=== PATIENT | female | born 1945 | race Caucasian/White ===

== ENCOUNTER → 2016-02-20 | Outpatient (REF) | payer MEDICARE ==
[~2016-02-20] MED LIST: /AMLO25TA PO; /ONDA4TA PO; /PANT40TA PO; ACTI300C PO; ADV250INH INH; ALAW0.02 OU; ASPI1TAB PO; BACIDCA PO; CLAR10CA3 PO; CREO24CA PO; FLUTISP; GARL1000 PO; LISI5TAB PO; LOSA50TA20 PO; MONT10TA2 PO; PERC5TAB PO; TYLE325T5 PO; VITA500C24 PO; VITMTA PO; [UNRECOGNIZED DRUG - CODE] PO; other PO
[2016-02-20 12:47] LABS: ALBUMIN 3.6 GM/DL (3.2-5.2); ALBUMIN/GLOBULIN RATIO 1.29 (1.00-1.93); ALKALINE PHOSPHATASE 93 U/L (45-117); ALT/SGPT 23 U/L (12-78); ANION GAP 10 MEQ/L (8-16); AST/SGOT 15 U/L (15-37); BILIRUBIN,TOTAL 0.5 MG/DL (0.2-1.0); BLOOD UREA NITROGEN 10 MG/DL (7-18); CALCIUM LEVEL 8.9 MG/DL (8.8-10.2); CARBON DIOXIDE LEVEL 25 MEQ/L (21-32); CHLORIDE LEVEL 102 MEQ/L (98-107); CHOLESTEROL LEVEL 122 MG/DL (<200); CREATININE FOR GFR 0.63 MG/DL (0.55-1.02); FREE T4 1.24 NG/DL (0.76-1.46); GLOMERULAR FILTRATION RATE > 60.0 (>39); GLUCOSE, FASTING 275 MG/DL (83-110); POTASSIUM SERUM 4.5 MEQ/L (3.5-5.1); SODIUM LEVEL 137 MEQ/L (136-145); TOTAL PROTEIN 6.4 GM/DL (6.4-8.2); TRIGLYCERIDES LEVEL 104 MG/DL (<150)
[2016-02-20 13:51] LABS: MEAN CORPUSCULAR HEMOGLOBIN 32.4 pg (27.0-33.0); MEAN CORPUSCULAR VOLUME 93.1 fl (80.0-96.0); RED CELL DISTRIBUTION WIDTH 12.5 % (11.5-14.5); WHITE BLOOD COUNT 3.1 K/mm3 (4.0-10.0)
[2016-02-20 13:52] LABS: PLATELET COUNT, AUTOMATED 212 k/mm3 (150-450)
[2016-02-20 13:54] LABS: MEAN CORPUSCULAR HGB CONC 34.9 g/dl (32.0-36.5)
[2016-02-20 14:40] LABS: DIFF SLIDE NUMBER 227
[2016-02-20 14:43] LABS: EOSINOPHILS 3 % (0-5)
[2016-02-20 14:45] LABS: ANISOCYTOSIS 1+; PLATELET CLUMPS SMALL AMT
== END ==
LOC: M LABDRAW1 11:43
PROVIDERS: ATTEND Physician Assistant
DX: Z00.00 Encounter for general adult medical examination without abnormal findings (principal); E11.9 Type 2 diabetes mellitus without complications

== ENCOUNTER → 2016-05-30 | Outpatient (CLI) | payer MEDICARE ==
[2016-05-30 13:36] LABS: ALBUMIN 3.8 GM/DL (3.2-5.2); ALBUMIN/GLOBULIN RATIO 1.31 (1.00-1.93); ALKALINE PHOSPHATASE 71 U/L (45-117); ALT/SGPT 16 U/L (12-78); ANION GAP 7 MEQ/L (8-16); AST/SGOT 9 U/L (15-37); BILIRUBIN,TOTAL 0.6 MG/DL (0.2-1.0); BLOOD UREA NITROGEN 16 MG/DL (7-18); CARBON DIOXIDE LEVEL 29 MEQ/L (21-32); CHLORIDE LEVEL 105 MEQ/L (98-107); CHOLESTEROL LEVEL 150 MG/DL (<200); CREATININE FOR GFR 0.53 MG/DL (0.55-1.02); GLOMERULAR FILTRATION RATE > 60.0 (>39); GLUCOSE, FASTING 154 MG/DL (83-110); POTASSIUM SERUM 4.4 MEQ/L (3.5-5.1); SODIUM LEVEL 141 MEQ/L (136-145); TOTAL PROTEIN 6.7 GM/DL (6.4-8.2); TRIGLYCERIDES LEVEL 92 MG/DL (<150)
== END ==
LOC: M SMT 08:48
PROVIDERS: ATTEND Family Medicine
DX: E11.65 Type 2 diabetes mellitus with hyperglycemia (principal); E78.1 Pure hyperglyceridemia

== ENCOUNTER → 2016-08-28 | Outpatient (CLI) | payer MEDICARE ==
[~2016-08-28] MED LIST changes: +ACET30TAB PO; +CINN500C9 PO; +VITA2000 PO; +[UNRECOGNIZED DRUG - CODE]
[2016-08-28 12:32] LABS: ANION GAP 6 MEQ/L (8-16); BLOOD UREA NITROGEN 13 MG/DL (7-18); CALCIUM LEVEL 9.2 MG/DL (8.8-10.2); CARBON DIOXIDE LEVEL 28 MEQ/L (21-32); CHLORIDE LEVEL 107 MEQ/L (98-107); CREATININE FOR GFR 0.54 MG/DL (0.55-1.02); GLOMERULAR FILTRATION RATE > 60.0 (>39); GLUCOSE, FASTING 155 MG/DL (83-110); POTASSIUM SERUM 4.4 MEQ/L (3.5-5.1); SODIUM LEVEL 141 MEQ/L (136-145)
== END ==
LOC: M SMT 08:28
PROVIDERS: ATTEND Physician Assistant
DX: E11.65 Type 2 diabetes mellitus with hyperglycemia (principal)

== ENCOUNTER 2016-11-06 12:31 | Emergency (ER) | payer MEDICARE ==
[~2016-11-06] VITALS: Ht 162.6 cm; Wt 78.6 kg
[~2016-11-06 12:31] MED LIST changes: -ACET30TAB PO; -CINN500C9 PO; -VITA2000 PO; -[UNRECOGNIZED DRUG - CODE]
[2016-11-06] MEDS ORDERED: VITA2000 PO (12:44)
[2016-11-06] MEDS ORDERED: CINN500C9 PO (12:44)
[2016-11-06] MEDS ORDERED: [UNRECOGNIZED DRUG - CODE] (12:44)
[2016-11-06] MEDS ORDERED: NS 500 ML IV ONE (14:15)
[2016-11-06] MEDS ORDERED: KETOROLAC 30 MG/ML VIAL (J1885) IV ONE (14:15)
[2016-11-06] MEDS ORDERED: GASTROGRAFIN SOLUTION 30ML (Q9963) As Ordered ONE (14:30)
[2016-11-06] MEDS ORDERED: GASTROGRAFIN SOLUTION 30ML PO ONE (14:35)
[2016-11-06] MEDS ORDERED: GASTROGRAFIN SOLUTION 30ML (Q9963) PO ONE (15:05)
[2016-11-06 15:07] LABS: BASO % 0.2 % (0.0-1.0); EOS # 0.1 10^3/uL (0.0-0.50); EOS % 0.8 % (0.0-3.0); IMMATURE GRANULOCYTE % 0.6 % (0-0); LYMPH # 1.4 10^3/uL (1.5-4.5); LYMPH % 20.9 % (24.0-44.0); MEAN CORPUSCULAR HEMOGLOBIN 31.1 pg (27.0-33.0); MEAN CORPUSCULAR HGB CONC 34.6 g/dl (32.0-36.5); MEAN CORPUSCULAR VOLUME 89.9 fl (80.0-96.0); MONO % 14.4 % (0.0-5.0); NEUTROPHILS # 4.2 10^3/uL (1.8-7.7); NEUTROPHILS % 63.1 % (36.0-66.0); PLATELET COUNT, AUTOMATED 220 10^3/uL (150-450); RED CELL DISTRIBUTION WIDTH 12.4 % (11.5-14.5); WHITE BLOOD COUNT 6.6 10^3/uL (4.0-10.0)
[2016-11-06 15:10] LABS: ADD MORPHOLOGY? NO
[2016-11-06 15:35] LABS: ALBUMIN 3.7 GM/DL (3.2-5.2); ALBUMIN/GLOBULIN RATIO 0.97 (1.00-1.93); ALKALINE PHOSPHATASE 90 U/L (45-117); ALT/SGPT 20 U/L (12-78); AMYLASE 26 U/L (25-115); ANION GAP 5 MEQ/L (8-16); AST/SGOT 11 U/L (15-37); BILIRUBIN,DIRECT 0.2 MG/DL (0.0-0.2); BILIRUBIN,TOTAL 0.8 MG/DL (0.2-1.0); BLOOD UREA NITROGEN 11 MG/DL (7-18); CALCIUM LEVEL 9.5 MG/DL (8.8-10.2); CARBON DIOXIDE LEVEL 28 MEQ/L (21-32); CHLORIDE LEVEL 102 MEQ/L (98-107); CREATININE FOR GFR 0.49 MG/DL (0.55-1.02); GLOMERULAR FILTRATION RATE > 60.0 (>39); GLUCOSE, FASTING 192 MG/DL (83-110); POTASSIUM SERUM 3.9 MEQ/L (3.5-5.1); SODIUM LEVEL 135 MEQ/L (136-145); TOTAL PROTEIN 7.5 GM/DL (6.4-8.2)
[2016-11-06] MEDS ORDERED: ISOVUE-370 76% 100ML VIAL (Q9967) As Ordered ONE (16:16)
[2016-11-06] MEDS ORDERED: ACET30TAB PO (17:48)
[2016-11-06 17:57] VITALS: BP 144/94
--- NOTE | 2016-11-06 18:02 | REP ---
CT ABDOMEN AND PELVIS WITH IV CONTRAST: TECHNIQUE: Axial contrast enhanced images from the lung bases to the pubic symphysis using 100 mL Isovue 370 intravenous contrast material with multiplanar reformations. The visualized lung bases demonstrate mild bibasilar fibro atelectatic change. Liver demonstrates no mass. Patient has had a prior cholecystectomy. Spleen and adrenals are unremarkable. Kidneys appear unremarkable. The pancreatic duct in the region of the pancreatic body is dilated up to 10 mm. There is poor definition of the margins of the pancreas with mild surrounding free fluid and inflammatory changes in the peripancreatic fat. Findings are consistent with pancreatitis. No pseudocyst is seen at this time. Small focus of air is seen between the posterior stomach wall and pancreatic body. This could represent a small posterior gastric wall ulcer. There is no other evidence of free air. No free fluid is seen more inferiorly. There is no abdominal aortic aneurysm. There is no adenopathy. No bowel wall thickening is seen, although there may be some mildly thickened loops adjacent to the pancreas. Anterior abdominal wall mesh is seen status-post hernia repair. No pelvic mass is seen. Urinary bladder is unremarkable. There is a small cyst in the lower pole of the right kidney. IMPRESSION: Findings of pancreatitis with peripancreatic inflammation and mild free fluid surrounding the pancreas. Pancreatic duct is dilated in the region of the body of the pancreas up to 10 mm. Tiny focus of air between the pancreatic body, tail and the posterior wall of the stomach could indicate a small ulcer of the posterior wall of the stomach. There are no other acute findings. Signed by Ottoniel Aguilar MD 11/07/2016 07:48 P
--- NOTE | 2016-11-09 08:56 | ED PDOC ---
[facility] formal report of ct abd/p for fu Scarlett Rees MD Nov 09, 2016 08:56
== END 2016-11-06 17:59 | disposition home or self-care (01) ==
LOC: M ED 12:31
DX: K86.1 Other chronic pancreatitis (principal)
CPT/HCPCS: 74177; 80048; 80076; 81001; 82150; 83605; 83690; 85025; 86140; 96361; 96374; 99283; J1885; Q9963; Q9967

== ENCOUNTER → 2016-11-28 | Outpatient (CLI) | payer MEDICARE ==
[~2016-11-28] MED LIST changes: +ACET30TAB PO; +CINN500C9 PO; +VITA2000 PO; +[UNRECOGNIZED DRUG - CODE]
[2016-11-28 14:19] LABS: BASO % 0.7 % (0.0-1.0); EOS # 0.2 10^3/uL (0.0-0.50); EOS % 3.9 % (0.0-3.0); IMMATURE GRANULOCYTE % 0.5 % (0-0); LYMPH # 1.5 10^3/uL (1.5-4.5); LYMPH % 34.5 % (24.0-44.0); MEAN CORPUSCULAR HEMOGLOBIN 31.3 pg (27.0-33.0); MEAN CORPUSCULAR HGB CONC 34.2 g/dl (32.0-36.5); MEAN CORPUSCULAR VOLUME 91.4 fl (80.0-96.0); MONO # 0.7 10^3/uL (0.0-0.8); MONO % 15.2 % (0.0-5.0); NEUTROPHILS % 45.2 % (36.0-66.0); PLATELET COUNT, AUTOMATED 209 10^3/uL (150-450); RED CELL DISTRIBUTION WIDTH 12.7 % (11.5-14.5); WHITE BLOOD COUNT 4.4 10^3/uL (4.0-10.0)
[2016-11-28 14:52] LABS: ALBUMIN 3.9 GM/DL (3.2-5.2); ALKALINE PHOSPHATASE 85 U/L (45-117); ALT/SGPT 19 U/L (12-78); ANION GAP 7 MEQ/L (8-16); AST/SGOT 7 U/L (15-37); BILIRUBIN,TOTAL 0.7 MG/DL (0.2-1.0); BLOOD UREA NITROGEN 14 MG/DL (7-18); CALCIUM LEVEL 9.3 MG/DL (8.8-10.2); CARBON DIOXIDE LEVEL 28 MEQ/L (21-32); CHLORIDE LEVEL 104 MEQ/L (98-107); CREATININE FOR GFR 0.57 MG/DL (0.55-1.02); GLOMERULAR FILTRATION RATE > 60.0 (>39); GLUCOSE, FASTING 207 MG/DL (83-110); POTASSIUM SERUM 4.7 MEQ/L (3.5-5.1); SODIUM LEVEL 139 MEQ/L (136-145); TOTAL PROTEIN 6.9 GM/DL (6.4-8.2)
== END ==
LOC: M SMT 08:33
PROVIDERS: ATTEND Family Medicine
DX: E11.65 Type 2 diabetes mellitus with hyperglycemia (principal)

== ENCOUNTER → 2017-02-27 | Outpatient (CLI) | payer MEDICARE ==
[2017-02-27 14:28] LABS: ALBUMIN 3.9 GM/DL (3.2-5.2); ALBUMIN/GLOBULIN RATIO 1.39 (1.00-1.93); ALKALINE PHOSPHATASE 56 U/L (45-117); ALT/SGPT 17 U/L (12-78); ANION GAP 7 MEQ/L (8-16); AST/SGOT 11 U/L (7-37); BILIRUBIN,TOTAL 0.7 MG/DL (0.2-1.0); BLOOD UREA NITROGEN 15 MG/DL (7-18); CALCIUM LEVEL 8.9 MG/DL (8.8-10.2); CARBON DIOXIDE LEVEL 27 MEQ/L (21-32); CHLORIDE LEVEL 105 MEQ/L (98-107); CHOLESTEROL LEVEL 138 MG/DL (<200); CHOLESTEROL RISK RATIO 2.464 (<5); CREATININE FOR GFR 0.54 MG/DL (0.55-1.02); GLOMERULAR FILTRATION RATE > 60.0 (>39); GLUCOSE, FASTING 150 MG/DL (83-110); HDL CHOLESTEROL 56 MG/DL (>40); NON-HDL-C 82 MG/DL; POTASSIUM SERUM 4.4 MEQ/L (3.5-5.1); SODIUM LEVEL 139 MEQ/L (136-145); TOTAL PROTEIN 6.7 GM/DL (6.4-8.2); TRIGLYCERIDES LEVEL 125 MG/DL (<150)
[2017-02-27 15:31] LABS: ESTIMATED AVERAGE GLUCOSE 157 MG/DL (60-110); HEMOGLOBIN A1c 7.1 %
== END ==
LOC: M SMT 09:21
DX: E11.65 Type 2 diabetes mellitus with hyperglycemia (principal)
CPT/HCPCS: 80053

== ENCOUNTER → 2017-05-29 | Outpatient (CLI) | payer MEDICARE ==
[2017-05-29 11:02] LABS: ALBUMIN/GLOBULIN RATIO 1.33 (1.00-1.93); ALKALINE PHOSPHATASE 61 U/L (45-117); ALT/SGPT 19 U/L (12-78); ANION GAP 6 MEQ/L (8-16); AST/SGOT 12 U/L (7-37); BILIRUBIN,TOTAL 0.7 MG/DL (0.2-1.0); BLOOD UREA NITROGEN 12 MG/DL (7-18); CARBON DIOXIDE LEVEL 29 MEQ/L (21-32); CHLORIDE LEVEL 108 MEQ/L (98-107); CREATININE FOR GFR 0.57 MG/DL (0.55-1.30); GLOMERULAR FILTRATION RATE > 60.0 (>39); GLUCOSE, FASTING 168 MG/DL (70-100); POTASSIUM SERUM 4.6 MEQ/L (3.5-5.1); SODIUM LEVEL 143 MEQ/L (136-145)
[2017-05-29 12:27] LABS: ESTIMATED AVERAGE GLUCOSE 143 MG/DL (60-110); HEMOGLOBIN A1c 6.6 %
== END ==
LOC: M SMT 09:05
DX: E11.65 Type 2 diabetes mellitus with hyperglycemia (principal)
CPT/HCPCS: 80053

== ENCOUNTER → 2017-08-28 | Outpatient (CLI) | payer MEDICARE ==
[2017-08-28 10:17] LABS: BASO % 0.6 % (0.0-1.0); EOS # 0.2 10^3/uL (0.0-0.50); EOS % 3.7 % (0.0-3.0); HEMATOCRIT 39.1 % (36.0-47.0); HEMOGLOBIN 13.8 g/dl (12.0-15.5); IMMATURE GRANULOCYTE % 0.2 % (0-3.0); LYMPH # 1.7 10^3/uL (1.5-4.5); LYMPH % 35.4 % (24.0-44.0); MEAN CORPUSCULAR HEMOGLOBIN 31.7 pg (27.0-33.0); MEAN CORPUSCULAR HGB CONC 35.3 g/dl (32.0-36.5); MEAN CORPUSCULAR VOLUME 89.7 fl (80.0-96.0); MONO # 0.7 10^3/uL (0.0-0.8); MONO % 15.1 % (0.0-5.0); NEUTROPHILS # 2.2 10^3/uL (1.8-7.7); PLATELET COUNT, AUTOMATED 253 10^3/uL (150-450); RED BLOOD COUNT 4.36 10^6/uL (4.00-5.40); RED CELL DISTRIBUTION WIDTH 12.6 % (11.5-14.5); WHITE BLOOD COUNT 4.9 10^3/uL (4.0-10.0)
[2017-08-28 11:06] LABS: ALBUMIN 3.9 GM/DL (3.2-5.2); ALBUMIN/GLOBULIN RATIO 1.22 (1.00-1.93); ALKALINE PHOSPHATASE 50 U/L (45-117); ALT/SGPT 24 U/L (12-78); ANION GAP 7 MEQ/L (8-16); AST/SGOT 14 U/L (7-37); BILIRUBIN,TOTAL 0.8 MG/DL (0.2-1.0); BLOOD UREA NITROGEN 12 MG/DL (7-18); CALCIUM LEVEL 9.5 MG/DL (8.8-10.2); CARBON DIOXIDE LEVEL 31 MEQ/L (21-32); CHLORIDE LEVEL 103 MEQ/L (98-107); CHOLESTEROL LEVEL 166 MG/DL (<200); CHOLESTEROL RISK RATIO 2.862 (<5); CREATININE FOR GFR 0.64 MG/DL (0.55-1.30); FREE T4 1.06 NG/DL (0.76-1.46); GLOMERULAR FILTRATION RATE > 60.0 (>39); GLUCOSE, FASTING 179 MG/DL (70-100); HDL CHOLESTEROL 58 MG/DL (>40); LDL CHOLESTEROL 69.4 MG/DL (<100); NON-HDL-C 108 MG/DL; SODIUM LEVEL 141 MEQ/L (136-145); TOTAL PROTEIN 7.1 GM/DL (6.4-8.2); TRIGLYCERIDES LEVEL 193 MG/DL (<150)
[2017-08-28 11:09] LABS: ESTIMATED AVERAGE GLUCOSE 163 MG/DL (60-110); HEMOGLOBIN A1c 7.3 %
[2017-08-28 11:15] LABS: POTASSIUM SERUM 5.2 MEQ/L (3.5-5.1)
[2017-08-28 15:06] LABS: CREATININE, URINE 45.3 MG/DL; MALB URINE SIEMENS 6.4 MG/L; MAU/CREAT RATIO 14.1 MCG/MG (0.0-30.0)
== END ==
LOC: M SMT 08:09
DX: E11.65 Type 2 diabetes mellitus with hyperglycemia (principal); K86.1 Other chronic pancreatitis
CPT/HCPCS: 84443

== ENCOUNTER → 2017-12-02 | Outpatient (CLI) | payer MEDICARE ==
[2017-12-02 20:26] LABS: ALBUMIN 3.8 GM/DL (3.2-5.2); ALBUMIN/GLOBULIN RATIO 1.36 (1.00-1.93); ALKALINE PHOSPHATASE 63 U/L (45-117); ALT/SGPT 23 U/L (12-78); ANION GAP 12 MEQ/L (8-16); AST/SGOT 14 U/L (7-37); BILIRUBIN,TOTAL 0.7 MG/DL (0.2-1.0); BLOOD UREA NITROGEN 9 MG/DL (7-18); CALCIUM LEVEL 8.8 MG/DL (8.8-10.2); CARBON DIOXIDE LEVEL 24 MEQ/L (21-32); CHLORIDE LEVEL 103 MEQ/L (98-107); CREATININE FOR GFR 0.61 MG/DL (0.55-1.30); GLOMERULAR FILTRATION RATE > 60.0 (>39); GLUCOSE, FASTING 244 MG/DL (70-100); POTASSIUM SERUM 4.4 MEQ/L (3.5-5.1); SODIUM LEVEL 139 MEQ/L (136-145); TOTAL PROTEIN 6.6 GM/DL (6.4-8.2)
[2017-12-02 23:57] LABS: ESTIMATED AVERAGE GLUCOSE 194 MG/DL (60-110); HEMOGLOBIN A1c 8.4 %
== END ==
LOC: M SMT 08:37
DX: E11.65 Type 2 diabetes mellitus with hyperglycemia (principal)
CPT/HCPCS: 80053

== ENCOUNTER → 2018-03-05 | Outpatient (CLI) | payer MEDICARE ==
[~2018-03-05] MED LIST changes: +CINN500T PO; +INVO100T PO; -LOSA50TA20 PO; +LOSA50TA88 PO; +MAGN250T9 PO; +METF500T13 PO; +MULT1TAB10 PO; +VENTAER INH; +VITA100067 PO
[2018-03-05 14:33] LABS: BLOOD UREA NITROGEN 14 MG/DL (7-18); CALCIUM LEVEL 9.1 MG/DL (8.8-10.2); CARBON DIOXIDE LEVEL 24 MEQ/L (21-32); CHLORIDE LEVEL 104 MEQ/L (98-107); CREATININE FOR GFR 0.57 MG/DL (0.55-1.30); GLOMERULAR FILTRATION RATE > 60.0 (>39); GLUCOSE, FASTING 150 MG/DL (70-100); POTASSIUM SERUM 4.4 MEQ/L (3.5-5.1); SODIUM LEVEL 140 MEQ/L (136-145)
[2018-03-05 16:14] LABS: HEMOGLOBIN A1c 7.2 %
== END ==
LOC: M SMT 09:24
PROVIDERS: ATTEND Physician Assistant
DX: E11.65 Type 2 diabetes mellitus with hyperglycemia (principal)

== ENCOUNTER → 2018-03-17 | Day surgery (SDC) | payer MEDICARE ==
[~2018-03-17] VITALS: Ht 160 cm; Wt 79.4 kg
[~2018-03-17] MED LIST changes: +LIDOCAINE 3.5 % 1ML OPHTH TOPICAL GEL OU ONE
== END | disposition home or self-care (01) ==
LOC: M SDC 07:08
PROVIDERS: ATTEND Ophthalmology
DX: H02.839 Dermatochalasis of unspecified eye, unspecified eyelid (principal); Z53.8 Procedure and treatment not carried out for other reasons

== ENCOUNTER 2018-04-06 05:56 | Day surgery (SDC) | payer MEDICARE ==
[~2018-04-06] VITALS: Ht 160 cm; Wt 79.3 kg
[~2018-04-06 05:56] MED LIST changes: -LIDOCAINE 3.5 % 1ML OPHTH TOPICAL GEL OU ONE
[2018-04-06] MEDS ORDERED: POVIDONE-IODINE 5% OPHTH PREP SOL 30ML As Ordered ONE (06:40)
[2018-04-06] MEDS ORDERED: TOBRADEX OPHTH OINT 3.5 GM As Ordered ONE (06:40)
[2018-04-06] MEDS ORDERED: TETRACAINE 0.5% OPHTH SOLN 4ML As Ordered ONE (06:40)
[2018-04-06] MEDS ORDERED: LIDOCAINE 2% W/EPIN INJ 20ML **PRES FREE As Ordered ONE (06:40)
[2018-04-06] MEDS ORDERED: SODIUM BICARBONATE 8.4% INJ 50MEQ 50 ML VIAL As Ordered ONE (06:40)
[2018-04-06] MEDS ORDERED: LIDOCAINE 3.5 % 1ML OPHTH TOPICAL GEL OU ONE (07:00)
[2018-04-06] MEDS ORDERED: MIDAZOLAM INJ 2 MG/2 ML VIAL (J2250) As Ordered ONE (07:30)
[2018-04-06] MEDS ORDERED: fentaNYL 100 MCG/2 ML INJECTION (J3010) As Ordered ONE (07:30)
[2018-04-06] MEDS ORDERED: PROPOFOL 200 MG/20 ML VIAL As Ordered ONE (07:40)
[2018-04-06 09:15] VITALS: BP 161/88
--- NOTE | 2018-04-06 11:18 | RO ---
DATE OF SURGERY: 04/06/2018 PREOPERATIVE DIAGNOSIS: Dermatochalasis, both eyes, interfering with daily activities. POSTOPERATIVE DIAGNOSIS: Dermatochalasis, both eyes, interfering with daily activities. PROCEDURE: Bilateral blepharoplasty. SURGEON: Macario Ward MD COMPOUNDING ASSISTANT: None. COMPLICATIONS: None. DESCRIPTION OF PROCEDURE: Procedure in detail: After informed consent was obtained, the patient was brought to the operating room and laid in supine position. The upper face was prepped and draped in a sterile fashion for bilateral blepharoplasty surgery, following which both upper lids were marked with a sterile marker along the lines of the proposed skin excision. Both upper lids were then infiltrated with 2% lidocaine with 1:100,000 epinephrine. After waiting for a few minutes, attention was diverted to the right eye. With the help of the electrocautery setting at 25, cutting in 25 coags, the premarked skin was incised and excised. Deeper dissection was carried out to isolate the medial and lateral fat pads, which were excised. Their stumps were cauterized. The wound was closed using 6-0 nylon suture. Exactly the same procedure was repeated for the left eye. Immediately afterwards, cold packs were applied. TobraDex ointment was applied, and the patient was returned to the recovery room, where postoperative instructions were given.
== END 2018-04-06 09:18 | disposition home or self-care (01) ==
LOC: M SDC 05:56
PROVIDERS: ATTEND Ophthalmology
DX: H02.831 Dermatochalasis of right upper eyelid (principal); H02.834 Dermatochalasis of left upper eyelid; E11.9 Type 2 diabetes mellitus without complications; J45.909 Unspecified asthma, uncomplicated; R06.83 Snoring; Z88.0 Allergy status to penicillin; Z88.1 Allergy status to other antibiotic agents; Z88.8 Allergy status to other drugs, medicaments and biological substances; Z91.013 Allergy to seafood; Z91.040 Latex allergy status; Z79.899 Other long term (current) drug therapy; Z79.84 Long term (current) use of oral hypoglycemic drugs; Z79.82 Long term (current) use of aspirin
CPT/HCPCS: 15823; 88302; J2250; J3010

== ENCOUNTER 2018-04-14 11:31 | Inpatient (IN) | payer MEDICARE ==
[~2018-04-14] VITALS: Ht 160 cm; Wt 75.6 kg
[2018-04-14 12:26] LABS: HEMATOCRIT 49.3 % (36.0-47.0); HEMOGLOBIN 16.7 g/dl (12.0-15.5); MEAN CORPUSCULAR HEMOGLOBIN 30.9 pg (27.0-33.0); MEAN CORPUSCULAR HGB CONC 33.9 g/dl (32.0-36.5); MEAN CORPUSCULAR VOLUME 91.1 fl (80.0-96.0); PLATELET COUNT, AUTOMATED 362 10^3/uL (150-450); RED BLOOD COUNT 5.41 10^6/uL (4.00-5.40); WHITE BLOOD COUNT 9.5 10^3/uL (4.0-10.0)
[2018-04-14 12:41] LABS: INR 1.09; PROTHROMBIN TIME 14.2 SECONDS (12.1-14.4)
[2018-04-14 12:42] LABS: PARTIAL THROMBOPLASTIN TIME 25.2 SECONDS (25.4-37.6)
[2018-04-14 12:44] LABS: BASOPHILS 1 % (0-4); EOSINOPHILS 1 % (0-5); LYMPHOCYTES 35 % (16-52); MONOCYTES 3 % (0-8); NEUTROPHILS 60 % (35-75); PLATELET ESTIMATE NORMAL (NORMAL)
[2018-04-14] MEDS ORDERED: NS 500 ML IV ONE (13:00)
[2018-04-14 13:01] LABS: ALT/SGPT 25 U/L (12-78); BILIRUBIN,DIRECT 0.3 MG/DL (0.0-0.2); BILIRUBIN,TOTAL 0.8 MG/DL (0.2-1.0); BLOOD UREA NITROGEN 36 MG/DL (7-18); CARBON DIOXIDE LEVEL 9 MEQ/L (21-32); CHLORIDE LEVEL 102 MEQ/L (98-107); CPK CREATINE PHOSPHOKINASE 26 U/L (26-192); CREATININE FOR GFR 1.39 MG/DL (0.55-1.30); FREE T4 1.27 NG/DL (0.76-1.46); GLOMERULAR FILTRATION RATE 39.7 (>39); GLUCOSE, FASTING 226 MG/DL (70-100); NT-PRO BNP 421 PG/ML (<125); POTASSIUM SERUM 4.5 MEQ/L (3.5-5.1); SODIUM LEVEL 134 MEQ/L (136-145); TOTAL PROTEIN 8.7 GM/DL (6.4-8.2); TROPONIN I < 0.02 NG/ML (< 0.10)
[2018-04-14 13:01] LABS: INFLUENZA A AMPLIFICATION NEGATIVE (NEGATIVE); INFLUENZA B AMPLIFICATION NEGATIVE (NEGATIVE)
--- NOTE | 2018-04-14 13:03 | REP ---
Chest x-ray: Two views. History: Weakness. Comparison chest x-ray: August 01, 2013. Findings: EKG monitoring electrodes overlie the chest. Lungs are well inflated and clear. Pleural angles are sharp. Right hemidiaphragm remains elevated unchanged. There are degenerative changes in the thoracic spine. Heart is not enlarged. The aorta slightly tortuous. Impression: Elevated right hemidiaphragm unchanged. Otherwise no acute disease. Electronically Signed by Cory Puente MD 04/14/2018 12:54 P
[2018-04-14 13:58] LABS: ACETAMINOPHEN LEVEL < 2.0 UG/ML (10.0-30.0); ETHYL ALCOHOL (ETHANOL) 0.005 % (0.000-0.010); SALICYLATE LEVEL 3.9 MG/DL (5.0-30.0)
[2018-04-14 14:13] LABS: ABG BASE EXCESS -18.7 (-2.0-2.0); ABG HCO3 5.2 MEQ/L (22.0-26.0); ABG O2 SATURATION 98.2 % (95.0-99.0); ABG PARTIAL PRESSURE O2 125.8 mmHg (75.0-100.0); ABG STANDARD HCO3 11.2 MEQ/L (22.0-26.0); ABG TOTAL CO2 5.6 MEQ/L (23.0-31.0); ABG pH (ARTERIAL) 7.253 UNITS (7.350-7.450)
[2018-04-14 14:16] LABS: ABG PARTIAL PRESSURE CO2 12.1 mmHg (35.0-45.0)
[2018-04-14 14:22] LABS: OSMOLALITY SERUM 322 MOSM/KG (280-301)
[2018-04-14] MEDS ORDERED: INVO300T PO (14:24)
[2018-04-14] MEDS ORDERED: MAXI0.1O OU (14:24)
[2018-04-14] MEDS ORDERED: NS 1,000 ML IV SCH (16:37)
[2018-04-14] MEDS ORDERED: GLUCAGON FOR INJ 1 MG VIAL (J1610) SC PRN (16:45)
[2018-04-14] MEDS ORDERED: ACETAMINOPHEN TAB 650MG DOSE (2X325MG) PO PRN (16:45)
[2018-04-14] MEDS ORDERED: DEXTROSE 50% 50 ML SYRINGE IV PRN (16:45)
[2018-04-14] MEDS ORDERED: GLUCOSE 4 GM CHEW TABLET PO PRN (16:45)
[2018-04-14] MEDS ORDERED: D5W/0.45% SODIUM CHLORIDE 1,000 ML IV ONE (17:15)
[2018-04-14] MEDS: NS 500 ML IV SCH ×2 (17:15→17:46)
[2018-04-14] MEDS ORDERED: MEROPENEM INJ 1 GM in APPROPRIATE DILUENT 1 EA IV ONE (18:00)
[2018-04-14 18:05] VITALS: BP 162/83
[2018-04-14] MEDS ORDERED: ALBUTEROL 90 MCG/ACT 8GM HFA INHALER INH PRN (18:15)
[2018-04-14] MEDS: HumaLOG INSULIN (NovoLOG) PER UNIT SC SCH ×2 (18:45→20:15)
[2018-04-14] MEDS: SODIUM BICARBONATE 75 MEQ in D5W/0.45% SODIUM CHLORIDE 1,000 ML IV SCH (18:52)
--- NOTE | 2018-04-14 18:59 | HPE ---
DATE OF ADMISSION: 04/14/2018 CHIEF COMPLAINT: Sent in from primary care doctor for abnormal EKG and general malaise, low appetite, diarrhea, and fevers for a week. HISTORY OF PRESENT ILLNESS: This is a 72-year-old female with past medical history of diabetes, on oral medications, prior history of pancreatitis, who presents with chief complaint of abnormal EKG at primary care doctor's office and 1 week of general malaise, low appetite, fevers, and diarrhea. Patient reports that last week she had an outpatient eyelid surgery because her eyelids were obstructing her vision. Postoperatively she was given a course of Bactrim with 14 pills. She completed 9 of those pills, but soon after she started the medication she started having symptoms of generally feeling unwell, low appetite, diarrhea with loose stools, and fevers up to 101. She did not have any cough or shortness of breath. She did go to her doctor's office today to followup on this, and she was noted to have sinus tachycardia with new T-wave inversions in V4-V6. She was sent to the emergency room (ER) for further evaluation. In the emergency room, patient was noted to have an anion gap acidosis with an acute kidney injury, and she was given intravenous (IV) fluids and admitted for further evaluation of the acute kidney injury, anion gap acidosis, and abnormal EKG. REVIEW OF SYSTEMS: Negative in 14 out of 14 systems except as noted above. Patient denies any chest pain. No shortness of breath. No dysuria. No confusion. PAST MEDICAL HISTORY: Diabetes, on oral medication. PAST SURGICAL HISTORY: 1. Cholecystectomy. 2. Appendectomy. 3. Umbilical hernia surgery. 4. section. 5. Eyelid surgery. ALLERGIES: Patient has multiple allergies to CEFAZOLIN, CEFPROZIL, DOXYCYCLINE, LATEX, METRONIDAZOLE, PENICILLINS, BACTRIM, and seafood. FAMILY HISTORY: No significant family history known. SOCIAL HISTORY: Patient lives with her . She is retired. No smoking, alcohol, drugs. PHYSICAL EXAMINATION: On exam, patient is afebrile in the ER to 98.3, current pressure 123/75 with a pulse of 114, respirations 22, saturating 99% on room air. GENERAL: She is in no acute distress but appears fatigued HEENT: Bilateral incisions on her eyelids appear clean and without any redness or drainage. Oropharynx clear. CARDIOVASCULAR: Tachycardic. No murmurs, rubs, or gallops. LUNGS: Clear to auscultation bilaterally. ABDOMEN: Mild lower quadrant tenderness. Soft, nondistended. EXTREMITIES: Patient has no clubbing, cyanosis, or edema. SKIN: Patient does have a petechial rash on her lower extremities that does not belgica. NEUROLOGIC: She is alert and oriented times three. No focal neurologic deficits. MUSCULOSKELETAL: Moves all extremities equally. PSYCHIATRIC: Mood stable. LABORATORY DATA: Patient has a CBC with a white count of 9.5, hemoglobin 16, hematocrit 49, platelets of 362. Chemistry shows creatinine of 1.39, potassium 4.5, sodium 134, serum osmolality 322, lactate of 3. Troponin negative. TSH within normal limits. ABG shows a pH of 7.25, pCO2 of 12, pO2 of 125. Salicylate level 3.9, Tylenol less than 2, ethyl alcohol level 0.005. Urinalysis (UA) showed only 1 white cell, 1 red cell, 2+ ketones. Negative nitrite, negative leukocyte esterase. Blood cultures pending. Respiratory panel negative. IMAGING: section shows elevated right hemidiaphragm. Otherwise no acute disease. ASSESSMENT AND PLAN: This is a 72-year-old female with past medical history of diabetes who presents after recent outpatient eyelid surgery with complaints of malaise, decreased appetite, fevers, diarrhea, and an abnormal EKG with new T-wave inversions in leads V4-V6. 1. Patient does have an anion gap metabolic acidosis. Patient does have an elevated lactate, which could be the reason for anion gap acidosis. I have started her on IV fluids and consultation with nephrology. Restarted her on half-normal saline with 75 mEq of bicarbonate. We will repeat a basic metabolic panel (BMP) this evening. Her salicylic level and ethyl glycol level were unremarkable. She does not appear to be in diabetic ketoacidosis (DKA), but I have checked serum ketones. We will continue to provide her with supportive care and will followup BMP. 2. Possible sepsis. Patient does report outpatient fevers to 101 and was tachycardic on admission. No documented fevers here; however, just as a precaution, I gave her one dose of meropenem given her multiple allergies. I am going to fluid resuscitate her, and we will continue to monitor her vital signs closely. I have sent for blood cultures. Her urine does not appear to be infected. Her respiratory panel is unremarkable. Given her diarrhea, I have also checked a Clostridium (C) difficile and gastrointestinal (GI) panel. 3. Abnormal EKG. Patient was noted to have an abnormal EKG with new T-wave inversions. She is completely chest pain free, and troponin was negative. I have informed the manager forms medication manager, Dr. Chen, who will see her tomorrow. For now I have put in an echocardiogram, and we will await cardiology recommendations. 4. Diarrhea. Given patient has had a new antibiotic, it is certainly possible that she has C. difficile. I have sent for a stool study as well as GI panel to evaluation for possible infectious etiology of her diarrhea. We will continue IV fluid hydration. 5. New skin rash. Patient does have a petechial rash on her lower extremities. This could be possible drug rash from the Bactrim. We will continue to monitor this. Given the new medication of Bactrim, I have also checked a urine eosinophil. Will continue to monitor rash. 6. Deep vein thrombosis (DVT) prophylaxis. I have started the patient on subcutaneous heparin.
[2018-04-14 20:00] VITALS: BP 138/80
[2018-04-14 20:13] LABS: CALCIUM LEVEL 8.1 MG/DL (8.8-10.2); CREATININE FOR GFR 1.09 MG/DL (0.55-1.30); GLOMERULAR FILTRATION RATE 52.5 (>39); POTASSIUM SERUM 4.6 MEQ/L (3.5-5.1)
[2018-04-14] MEDS: ASPIRIN 81 MG ENTERIC TAB PO SCH (20:55)
[2018-04-14] MEDS: MONTELUKAST 10 MG TAB PO SCH (20:55)
[2018-04-14] MEDS: HEPARIN SOD (PORCINE) 5000 UNITS/ML VIAL SC SCH (20:56)
[2018-04-14] MEDS: MAXITROL OPHTH OINT 3.5 GM OU SCH (20:56)
[2018-04-15] VITALS: BP 128/71
[2018-04-15 04:00] VITALS: BP 109/70
[2018-04-15] MEDS: SODIUM BICARBONATE 75 MEQ in D5W/0.45% SODIUM CHLORIDE 1,000 ML IV SCH ×2 (04:14→15:15)
[2018-04-15 05:07] LABS: HEMATOCRIT 38.3 % (36.0-47.0); MEAN CORPUSCULAR HEMOGLOBIN 30.5 pg (27.0-33.0); MEAN CORPUSCULAR VOLUME 87.2 fl (80.0-96.0); PLATELET COUNT, AUTOMATED 275 10^3/uL (150-450); RED BLOOD COUNT 4.39 10^6/uL (4.00-5.40); WHITE BLOOD COUNT 7.4 10^3/uL (4.0-10.0)
[2018-04-15 05:16] LABS: HEMOGLOBIN 13.4 g/dl (12.0-15.5)
[2018-04-15 05:37] LABS: BLOOD UREA NITROGEN 26 MG/DL (7-18); CALCIUM LEVEL 8.2 MG/DL (8.8-10.2); CARBON DIOXIDE LEVEL 15 MEQ/L (21-32); CHLORIDE LEVEL 109 MEQ/L (98-107); GLOMERULAR FILTRATION RATE > 60.0 (>39); GLUCOSE, FASTING 191 MG/DL (70-100); POTASSIUM SERUM 3.9 MEQ/L (3.5-5.1); SODIUM LEVEL 140 MEQ/L (136-145)
[2018-04-15 08:00] VITALS: BP 130/75
--- NOTE | 2018-04-15 08:47 | CR ---
DATE OF CONSULTATION: 04/15/2018 REFERRING PHYSICIAN: Gina Ross MD INDICATION: Abnormal ECG. HISTORY OF PRESENT ILLNESS: Mrs. Ruiz is previously unknown to me. She is a very pleasant 72-year-old female who was admitted as to [facility] yesterday being referred from her primary care physician's office for abnormal ECG. Her current illness actually started with eyelid surgery about 10 days ago. Postoperatively she was started on Bactrim and almost immediately started having indigestion, diarrhea and apparently fever as well. There was very poor oral intake. Eventually, in follow-up with her primary care physician ECG was performed and she was sent to the emergency room. She was found to be acidotic and have a little widened anion gap, her lactic acid was slightly elevated. She was hydrated, started on antibiotics and most of the abnormalities corrected. Her ECG does reveal presence of fairly diffuse repolarization abnormalities with T-wave inversions in leads V4, V2, V6. The overall impression is that of left ventricular hypertrophy, even though there is certainly a differential diagnosis. I could not find any recent ECG for comparison. The last EKG I could find in her records was from 2011 and it was then essentially normal. The patient denies any cardiovascular symptoms. Specifically she denies any chest pain, shortness of breath or palpitations. She does admit that at her baseline she gets short of breath with activity but most activities of daily living are without any obvious limitations. PAST MEDICAL HISTORY: 1. Type 2 diabetes. 2. She denies dyslipidemia or hypertension. SURGICAL HISTORY 1. Cholecystectomy. 2. Umbilical hernia repair. 3. Appendectomy. 4. section. 5. Eyelid surgery. ALLERGIES: 1. CEPHAZOLIN. 2. DOXYCYCLINE. 3. LATEX. 4. METRONIDAZOLE. 5. PENICILLINS. 6. BACTRIM. 7. Seafood. FAMILY HISTORY: No longer relevant. She denies any early coronary artery disease in first-degree relatives. SOCIAL HISTORY: The patient does not smoke, does not drink. She is and lives with her . REVIEW OF SYSTEMS: She has had some fever and chills. No vomiting but had occasional nausea. She has mild discomfort mostly in the suprapubic area on both sides. No chest pain, no palpitations. No recent shortness of breath. No syncope or palpitations. No bleeding problems. No peripheral edema. The rest as per HPI, otherwise negative. PHYSICAL EXAMINATION: Mrs. Ruiz is an elderly woman who appears probably a little bit younger than her age. The last set of vital signs blood pressure 109/70, heart rate in 90s. She is afebrile. Saturation is 96-99% on room air. Weight is documented as 72 kg. She is alert and oriented and appropriate. She does have some bruising on her eyelids after recent surgery. Her JVP though is not elevated. I do not appreciate carotid bruit. No goiter. Lungs are clear with good air movement. No wheezing, crackles or rhonchi are noted. Heart exam reveals regular rhythm without gallop, rub or murmur, somewhat muffled heart sounds. Abdomen is soft. There is mild tenderness in mostly suprapubic area but no guarding. Bowel sounds are positive. Extremities are free of edema. There are good peripheral pulses and neurologically she is intact. She has a fine petechial type of rash on her shins. LABORATORY DATA: CBC as of today is completely normal. Basic metabolic panel sodium 140, potassium 3.9, BUN is 26, creatinine 0.9 and glucose 191. Her initial lactic acid was 3.0 came down to 1.8 after hydration. She had normal cardiac enzymes. Normal TSH and her N terminal proBNP was 421. Her chest x-ray that was performed yesterday reveals fairly dramatic elevation of right hemidiaphragm which is unchanged compared to prior studies. ASSESSMENT/PLAN: Mrs. Ruiz is a 72-year-old female who has history of type 2 diabetes, but denies history of hypertension who presents with rather nonspecific symptoms in my opinion most likely related to administration of Bactrim and is found to have fairly significant repolarization abnormalities on ECG. She does have no cardiac symptoms though. I suspect this is most likely going to be hypertensive heart disease, even though surprisingly she does not carry a diagnosis of hypertension. I will obtain followup electrocardiogram to make sure that these abnormalities did not reflex her underlying metabolic issue. Will obtain also an echocardiogram during this hospitalization. I do not believe that any further cardiac testing will have to be done as an inpatient depending on result her echo will decide on further outpatient testing which may or may not involve evaluation for underlying coronary artery disease. In the interim, I do not have any new recommendations. She is already on aspirin and blood pressure is indeed not elevated. I do not see any definite reason to start her on lipid lowering medications, especially because we do not have her lipid panel. cc: Elena Watie, DO
--- NOTE | 2018-04-15 08:49 | ECGEPIP ---
Stationary ECG Study [facility] - ED Test Date: 2018-04-14 Pat Name: ZINA VELÁSQUEZ Department: Room: - Gender: F [employer]ist: : 1945 Requested By: Jose J Orta Order Number: [id number] Reading MD: Nj Carlin Measurements Intervals [place] Rate: 120 P: 57 [place]: 120 QRS: 22 QRSD: 102 T: 202 QT: 297 QTc: 421 Interpretive Statements SINUS TACHYCARDIA ST DEVIATION AND MODERATE T-WAVE ABNORMALITY, CONSIDER ISCHEMIA Electronically Signed On 04-15-2018 8:49:29 EST by Nj Carlin
[2018-04-15] MEDS: HEPARIN SOD (PORCINE) 5000 UNITS/ML VIAL SC SCH ×2 (08:58→21:00)
[2018-04-15] MEDS: HumaLOG INSULIN (NovoLOG) PER UNIT SC SCH ×4 (08:59→21:00)
[2018-04-15] MEDS: VITAMIN D 1,000 INTERNATIONAL UNITS TABLET PO SCH (08:59)
[2018-04-15] MEDS: MAXITROL OPHTH OINT 3.5 GM OU SCH ×2 (08:59→22:51)
--- NOTE | 2018-04-15 09:43 | ECGEPIP ---
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
[2018-04-15 12:00] VITALS: BP 106/59
[2018-04-15] MEDS: SODIUM BICARBONATE 325 MG TAB PO SCH ×2 (13:42→22:50)
--- NOTE | 2018-04-15 14:32 | IPNPDOC ---
Text Note Date of Service The patient was seen on 04/15/18. NOTE SUBJECTIVE: Continues to be tired and fatigued, Poor appetite. However her jordy rrhea has stopped for 2 days now. No fever or chills here. No abdominal pain , nausea or vomiting. PHYSICAL EXAMINATION: VITALS: As below. GENERAL: She is in no acute distress but appears fatigued HEENT: Bilateral incisions on her eyelids appear clean and without any redness or drainage. Oropharynx clear. CARDIOVASCULAR: Tachycardic. No murmurs, rubs, or gallops. LUNGS: Clear to auscultation bilaterally. ABDOMEN: Mild lower quadrant tenderness. Soft, nondistended. EXTREMITIES: Patient has no clubbing, cyanosis, or edema. SKIN: Patient does have a petechial rash on her lower extremities that does not belgica. NEUROLOGIC: She is alert and oriented times three. No focal neurologic deficits. MUSCULOSKELETAL: Moves all extremities equally. PSYCHIATRIC: Mood stable. Labs and radiology: reviewed. Sent in from primary care doctor for abnormal EKG and general malaise, low appetite, diarrhea, and fevers for a week. Assessment and Plan: This is a 72-year-old female with past medical history of diabetes, on oral medications, prior history of pancreatitis, who presents with chief complaint of abnormal EKG at primary care doctor's office and 1 week of general malaise, low appetite, fevers, and diarrhea. Patient reports that on 04/04 she had an outpatient eyelid surgery because her eyelids were obstructing her vision. Postoperatively she was given a course of Bactrim with 14 pills. She completed 9 of those pills, but soon after she started the medication she started having symptoms of generally feeling unwell, low appetite, diarrhea with loose stools, and fevers up to 101. She did not have any cough or shortness of breath. She did go to her doctor's office today to followup on this, and she was noted to have sinus tachycardia with new T-wave inversions in V4-V6. She was sent to the emergency room (ER) for further evaluation. In the ED lab work showed mildly elevated creatinine, lactic acid and very low bicarbonate . In the emergency room, patient was noted to have an anion gap acidosis with an acute kidney injury, and she was given intravenous (IV) fluids and admitted for further evaluation of the acute kidney injury, anion gap acidosis, and abnormal EKG. High Anion gap metabolic acidosis: probably due to diarrhea from bactrim with loss of bicarb in the stools and being on metformin causing lactic acidosis. Continue bicarb infusion according to Nephrology. ALEXSANDER possibly from being on bactrim with mild dehydration from diarrhea now resolved. Abnormal EKG. Patient was noted to have an abnormal EKG with new T-wave inversions. She is completely chest pain free, and troponin was negative. Seen by cardio does not think there is any ischemia going on, think may have hypertensive heart disease. echo has been ordered. Will follow up as outpatient and consider work up for CAD if needed. New skin rash. Patient does have a petechial rash on her lower extremities. This could be possible drug rash from the Bactrim. We will continue to monitor this. Given the new medication of Bactrim Deep vein thrombosis (DVT) prophylaxis. I have started the patient on subcutaneous heparin. VS,Fishbone, I+O VS, Fishbone, I+O Laboratory Tests 04/14/18 19:45 Calcium Level 8.1 #L 04/15/18 04:12 Calcium Level 8.2 L, Red Blood Count 4.39, Mean Corpuscular Volume 87.2, Mean Corpuscular Hemoglobin 30.5, Mean Corpuscular Hemoglobin Concent 35.0, Red Cell Distribution Width 13.2 Vital Signs Date Time Temp Pulse Resp B/P (MAP) Pulse Ox O2 Delivery O2 Flow Rate FiO2 04/15/18 12:00 98.1 97 18 106/59 (75) 98 04/14/18 17:45 Room Air I&O- Last 24 Hours up to 6 AM 04/15/18 06:00 Intake Total 730 ml Output Total 700 ml Balance 30 ml FABIO CORNELIUS MD Apr 15, 2018 14:32
[2018-04-15 15:11] LABS: APPEARANCE, URINE CLEAR (CLEAR); BACTERIA, URINE AUTO NEGATIVE (NEGATIVE); BILIRUBIN, URINE AUTO NEGATIVE (NEGATIVE); BLOOD, URINE BLOOD NEGATIVE (NEGATIVE); COLOR, URINE YELLOW (YELLOW); GLUCOSE, URINE (UA) AUTO 3+ mg/dL (NEGATIVE); KETONE, URINE AUTO 1+ mg/dL (NEGATIVE); LEUKOCYTE ESTERASE, URINE AUTO NEGATIVE (NEGATIVE); MUCUS, URINE SMALL (NEGATIVE); NITRITE, URINE AUTO NEGATIVE (NEGATIVE); PROTEIN, URINE AUTO NEGATIVE (NEGATIVE); RBC, URINE AUTO 0 /HPF (0-3); SPECIFIC GRAVITY URINE AUTO 1.031 (1.002-1.035); SQUAMOUS EPITHELIAL CELL UR AU 0 /HPF (0-6); UROBILINOGEN, URINE AUTO 0.2 mg/dL (0.0-2.0); WBC, URINE AUTO 2 /HPF (0-3)
[2018-04-15 15:42] VITALS: BP 114/57
--- NOTE | 2018-04-15 19:21 | ECHO ---
DATE OF PROCEDURE: 04/15/2018 REFERRING PHYSICIAN: Gina Ross MD PRIMARY SIGNAL MAINTENANCE TECHNICIAN: Carlos Chen MD PATIENT LOCATION: Room 3220 REASON FOR ECHOCARDIOGRAM: Abnormal EKG. 2D MEASUREMENTS: IVS: 0.93 cm LV: 3.1 cm LVPW: 0.86 cm LA: 2.8 cm Aorta: 2.8 cm IVC: 1.5 cm DOPPLER MEASUREMENTS: Peak velocity across the aortic valve: 1.5 m/s Peak velocity across the LVOT: 0.92 m/s Mitral E: 0.56, Mitral A: 0.95, with a ratio of 0.6 2D COMMENTS: 1. Normal left ventricular size, wall thickness and normal global left ventricular systolic function. The estimated global left ventricular systolic ejection fraction is 60 to 65%. 2. Normal left atrium. Normal right atrium and right ventricle. 3. The atrial septum appeared to be normal without evidence of defect or shunt. 4. Normal aortic root. 5. Trace pericardial effusion noted. No evidence of cardiac tamponade. 6. Minimally calcified aortic valve with normal leaflet excursion. Normal mitral valve, tricuspid valve and pulmonic valve. The proximal pulmonary artery branches were not well visualized. 7. The inferior vena cava was normal in size, central venous pressure is most likely normal. DOPPLER: Only trace mitral regurgitation detected in limited views. Abnormal relaxation pattern was noted across the mitral valve annulus consistent with findings of grade 1 left ventricular diastolic dysfunction. IMPRESSION: 1. Normal global left ventricular systolic function. There are some features of left ventricular diastolic dysfunction manifested by abnormal relaxation. 2. Aortic valve sclerosis with out stenosis or aortic regurgitation. 3. Trace mitral regurgitation. 4. Trace pericardial effusion.
[2018-04-15 20:00] VITALS: BP 104/54
[2018-04-15] MEDS: MONTELUKAST 10 MG TAB PO SCH (22:50)
[2018-04-15] MEDS: ASPIRIN 81 MG ENTERIC TAB PO SCH (22:50)
[2018-04-16] VITALS: BP 106/69
[2018-04-16] MEDS: SODIUM BICARBONATE 75 MEQ in D5W/0.45% SODIUM CHLORIDE 1,000 ML IV SCH (02:04)
[2018-04-16 04:00] VITALS: BP 117/59
--- NOTE | 2018-04-16 07:21 | CR ---
DATE OF CONSULTATION: 04/15/2018 REQUESTING PHYSICIAN: Dr. Gina Ross. REASON FOR CONSULTATION: Management of acute kidney injury and anion gap metabolic acidosis. HISTORY OF PRESENT ILLNESS: Janna Ruiz is a 72-year-old female with a past medical history of recurrent pancreatitis, non-insulin dependent diabetes mellitus. Patient reports she was in her usual state of health until she had eyelid surgery about 10 days ago. Following eyelid surgery, she was started on twice daily Bactrim and reports that she began to have nausea, fatigue, diarrhea and fevers at home. She reports poor oral intake. Over the past couple of days, she also reports she developed a petechial rash on her lower extremities. She denied vomiting. She subsequently went to her primary care physician and was found to have anion gap acidosis and abnormal EKG and was sent to the emergency room. Her lactic acid level was noted to be slightly elevated and her serum bicarbonate was as low as 9. Patient was given IV hydration and her Bactrim was discontinued. Nephrology consultation as requested in view of her mild acute kidney injury and anion gap acidosis. PAST MEDICAL HISTORY: Diabetes. History of recurrent pancreatitis. PAST SURGICAL HISTORY: Cholecystectomy. Appendectomy. Umbilical hernia repair. section. Eyelid surgery. ALLERGIES: She has multiple allergies including CEFAZOLIN, CEFPROZIL, DOXYCYCLINE, LATEX, FLAGYL, PENICILLIN, SEAFOOD and BACTRIM. FAMILY HISTORY: She denies family history of endstage renal disease or coronary artery disease of early onset. SOCIAL HISTORY: She is . She does not smoke, drink, and denies elicit drugs. HOME MEDICATIONS: Reviewed and include: - metformin - canagliflozin - Sinemet - garlic - magnesium oxide - montelukast - multivitamin - albuterol - aspirin REVIEW OF SYSTEMS: Constitutional: She reports fevers and fatigue and weakness. Eyes: She denies visual changing or blurring. ENT: She denies rhinorrhea, odynophagia, ear/nose/throat problem. Cardiac: She denies chest pain or palpitations. Respiratory: She denies shortness of breath or cough. GI: She reports nausea, poor oral intake and diarrhea. : She denies dysuria or hematuria. Musculoskeletal: She denies any new arthralgias or myalgias. Endocrine: She reports non-insulin dependent diabetes. She denies polyuria, polydipsia. Hematologic: She denies easy bruising or bleeding. She denies anticoagulant use. Skin: She reports onset of petechial rash on her legs for the past 2 days. She denies pruritus. Neurology: She denies syncope or seizure. Remainder of review of systems is as per history of present illness. VITAL SIGNS: Temperature 98.1, pulse 99, respiratory rate 20, blood pressure 114/57, saturating 98% on room air. Intake and output show intake of 2000 and urine output of 1400. Weight on the bed scale today 72.5 kg. General: Patient is seen lying in bed, awake, alert, oriented, comfortable, smiling, no acute distress. Extraocular muscles are intact. There is surgical changes noted on the eyelid and some bruising present. Her neck veins are not distended. Cardiac: S1, S2. Regular rate and rhythm. Lungs: Clear to auscultation bilaterally. No crackle, rale or wheeze. Abdomen: Soft. There is no tenderness to palpation. There are bowel sounds. Extremities: Negative for edema, clubbing or cyanosis. She has fine petechial non-blanching rash present on her feet up to her mid shins. Neurologic: She is oriented times three. No focal deficits. LABS: Sodium 140, potassium 3.9, bicarbonate was 9 now is up to 15, BUN 26, creatinine 0.9. Lactic acid was 3.0, now 1.8. Hemoglobin 13.4. Microbiology: Blood cultures no growth for 24 hours times two sets. Chest x-ray 04/14/2018: Elevated right hemidiaphragm, otherwise lungs are clear and pleural angles are sharp. PATIENT MEDICATIONS: She is receiving: - D5 half normal saline with 75 mEq of sodium bicarbonate at 100 mL/hr - Tylenol as needed - aspirin 81 mg by mouth daily at bedtime - heparin 5000 units subcu every 12 - insulin - Singulair - sodium bicarbonate 325 mg by mouth twice daily - vitamin D 1000 units by mouth daily PROBLEMS: 1. Acute kidney injury. It was mild and likely related to dehydration, diarrhea, poor oral intake. Her admission creatinine was 1.3 and this has improved to 0.9. We are continuing IV fluids. Her urine analysis is negative for blood and protein. Bactrim can also cause rise on serum creatinine. 2. Anion gap metabolic acidosis. It is multifactorial and due to ketoacidosis, urine ketones have improved from 2+ to 1+, also secondary to lactic acidosis, diarrhea and dehydration. Her serum bicarbonate was 9 on arrival. Her blood gas was also consistent with anion gap metabolic acidosis with respiratory compensation. She is receiving bicarbonate containing fluids and I have also started her on oral sodium bicarbonate. Her acidosis is improving. 3. Petechial skin rash on lower extremities likely drug rash related to Bactrim and as per patient it is already improving. Thank you for involving me in the care of Ms. Ruiz. I will be happy to follow her along with you.
[2018-04-16 08:00] VITALS: BP 124/79
[2018-04-16] MEDS: HEPARIN SOD (PORCINE) 5000 UNITS/ML VIAL SC SCH ×2 (08:04→20:41)
[2018-04-16] MEDS: VITAMIN D 1,000 INTERNATIONAL UNITS TABLET PO SCH (08:04)
[2018-04-16] MEDS: HumaLOG INSULIN (NovoLOG) PER UNIT SC SCH ×4 (08:04→20:21)
[2018-04-16] MEDS: SODIUM BICARBONATE 325 MG TAB PO SCH (08:04)
[2018-04-16] MEDS: MAXITROL OPHTH OINT 3.5 GM OU SCH ×2 (08:05→20:42)
[2018-04-16 08:43] LABS: EOS # 0.1 10^3/uL (0.0-0.50); EOS % 1.5 % (0.0-3.0); HEMATOCRIT 33.8 % (36.0-47.0); HEMOGLOBIN 12.2 g/dl (12.0-15.5); LYMPH # 2.1 10^3/uL (1.5-4.5); LYMPH % 54.3 % (24.0-44.0); MEAN CORPUSCULAR HGB CONC 36.1 g/dl (32.0-36.5); MONO # 0.8 10^3/uL (0.0-0.8); MONO % 20.4 % (0.0-5.0); PLATELET COUNT, AUTOMATED 184 10^3/uL (150-450); RED BLOOD COUNT 3.93 10^6/uL (4.00-5.40); WHITE BLOOD COUNT 3.9 10^3/uL (4.0-10.0)
[2018-04-16 09:08] LABS: BLOOD UREA NITROGEN 11 MG/DL (7-18); CALCIUM LEVEL 8.4 MG/DL (8.8-10.2); CARBON DIOXIDE LEVEL 29 MEQ/L (21-32); CHLORIDE LEVEL 104 MEQ/L (98-107); CREATININE FOR GFR 0.71 MG/DL (0.55-1.30); GLOMERULAR FILTRATION RATE > 60.0 (>39); GLUCOSE, FASTING 228 MG/DL (70-100); SODIUM LEVEL 141 MEQ/L (136-145)
[2018-04-16 09:43] LABS: NEUTROPHILS # 0.9 10^3/uL (1.8-7.7)
[2018-04-16 12:00] VITALS: BP 131/74
[2018-04-16] MEDS ORDERED: POTASSIUM CHLORIDE 10 MEQ SR TABLET PO ONE (15:00)
[2018-04-16 20:00] VITALS: BP 138/84
[2018-04-16] MEDS: ASPIRIN 81 MG ENTERIC TAB PO SCH (20:41)
[2018-04-16] MEDS: MONTELUKAST 10 MG TAB PO SCH (20:41)
--- NOTE | 2018-04-16 20:44 | IPN ---
DATE: 04/16/2018 SUBJECTIVE Patient is seen and examined this morning at the bedside. Reports she is still having pasty stools. Reports her appetite is still poor. Her labs show resolution of acidosis. Temperature 98.0, pulse 91, respiratory rate 20, blood pressure 124/79, saturating 96% on room air. Intake yesterday was 2.2 liters. Urine output yesterday was 1950. Net positive 300 mL. Weight on the bed scale today is 75.4 kg. GENERAL: The patient is seen sitting at the edge of bed, legs dangling. Awake, alert, oriented. Extraocular muscles are intact. Tongue is moist. Neck is supple. Jugular veins are not elevated. The eyelids have some surgical changes and there is some bruising. CARDIAC: S1, S2. Regular rate and rhythm. LUNGS: Clear to auscultation bilaterally. No crackle, rale or wheeze. ABDOMEN: Soft and nontender. There are bowel sounds. EXTREMITIES: Negative for clubbing, cyanosis or edema. SKIN: Shows petechial rash in the lower extremities that is nonblanching NEUROLOGICAL: She is oriented times three. No focal deficits. PSYCHIATRIC: Appropriate mood and affect. LABS: White count 3.9, hemoglobin 12.2, platelet 184. Sodium 141, potassium 3.0. Bicarbonate 29, BUN 11, creatinine 0.7. Blood cultures: No growth for 48 hours times two sets. GIPCR was negative. INPATIENT MEDICATIONS: I have discontinued her off of the sodium bicarbonate fluid and I have also discontinued the oral sodium bicarbonate. She received a dose of potassium chloride 40 mEq by mouth times 1 today. Remainder of medications are unchanged from prior. PROBLEMS: 1. Acute kidney injury. It was mild and secondary to dehydration, diarrhea, poor oral intake and use of Bactrim. Her creatinine is back down to 0.7. Her IV fluids are discontinued. She is encouraged for oral intake. 2. Anion gap metabolic acidosis. It is multifactorial and due to ketoacidosis, lactic acidosis, diarrhea, dehydration. Her bicarbonate has improved to normal levels. Her sodium bicarbonate infusion is discontinued and her oral bicarbonate is discontinued as well. 3. Petechial skin rash on lower extremities. Likely rash related to Bactrim. 4. DISPOSITION:. Nephrology is signing off the case. Please reconsult as needed.
--- NOTE | 2018-04-16 20:44 | IPNPDOC ---
Text Note Date of Service The patient was seen on 04/16/18. NOTE SUBJECTIVE: Patient examined at bedside this morning. Feeling much better. Emilie rrhea improving. Has been out of bed to the bathroom. Her appetite is coming back. PHYSICAL EXAMINATION: VITALS: As below. GENERAL: She is in no acute distress but appears fatigued HEENT: Bilateral incisions on her eyelids appear clean and without any redness or drainage. Oropharynx clear. CARDIOVASCULAR: Tachycardic. No murmurs, rubs, or gallops. LUNGS: Clear to auscultation bilaterally. ABDOMEN: Mild lower quadrant tenderness. Soft, nondistended. EXTREMITIES: Patient has no clubbing, cyanosis, or edema. SKIN: Patient does have a petechial rash on her lower extremities that does not belgica. NEUROLOGIC: She is alert and oriented times three. No focal neurologic deficits. MUSCULOSKELETAL: Moves all extremities equally. PSYCHIATRIC: Mood stable. Labs and radiology: reviewed. Sent in from primary care doctor for abnormal EKG and general malaise, low appetite, diarrhea, and fevers for a week. Assessment and Plan: This is a 72-year-old female with past medical history of diabetes, on oral medications, prior history of pancreatitis, who presents with chief complaint of abnormal EKG at primary care doctor's office and 1 week of general malaise, low appetite, fevers, and diarrhea. Patient reports that on 04/04 she had an outpatient eyelid surgery because her eyelids were obstructing her vision. Postoperatively she was given a course of Bactrim with 14 pills. She completed 9 of those pills, but soon after she started the medication she started having symptoms of generally feeling unwell, low appetite, diarrhea with loose stools, and fevers up to 101. She did not have any cough or shortness of breath. She did go to her doctor's office today to followup on this, and she was noted to have sinus tachycardia with new T-wave inversions in V4-V6. She was sent to the emergency room (ER) for further evaluation. In the ED lab work showed mildly elevated creatinine, lactic acid and very low bicarbonate . In the emergency room, patient was noted to have an anion gap acidosis with an acute kidney injury, and she was given intravenous (IV) fluids and admitted for further evaluation of the acute kidney injury, anion gap acidosis, and abnormal EKG. High Anion gap metabolic acidosis: probably due to diarrhea from bactrim with loss of bicarb in the stools and being on metformin causing lactic acidosis. now corrected. bicarb infusion stopped and put on oral bicarb ALEXSANDER possibly from being on bactrim with mild dehydration from diarrhea now resolved. Abnormal EKG. Patient was noted to have an abnormal EKG with new T-wave inversions. She is completely chest pain free, and troponin was negative. Seen by cardio does not think there is any ischemia going on, think may have hypertensive heart disease. echo has been ordered. Will follow up as outpatient and consider work up for CAD if needed. New skin rash. Patient does have a petechial rash on her lower extremities. This could be possible drug rash from the Bactrim. We will continue to monitor this. Given the new medication of Bactrim Deep vein thrombosis (DVT) prophylaxis. I have started the patient on subcutaneous heparin. VS,Fishbone, I+O VS, Fishbone, I+O Laboratory Tests 04/16/18 08:20 Red Blood Count 3.93 L, Mean Corpuscular Volume 86.0, Mean Corpuscular Hemoglobin 31.0, Mean Corpuscular Hemoglobin Concent 36.1, Red Cell Distribution Width 12.2, Neutrophils (%) (Auto) 22.0 L, Lymphocytes (%) (Auto) 54.3 H, Monocytes (%) (Auto) 20.4 H, Eosinophils (%) (Auto) 1.5, Basophils (%) (Auto) 1.0, Neutrophils # (Auto) 0.9 L, Lymphocytes # (Auto) 2.1, Monocytes # (Auto) 0.8, Eosinophils # (Auto) 0.1, Basophils # (Auto) 0.0, Calcium Level 8.4 L Vital Signs Date Time Temp Pulse Resp B/P (MAP) Pulse Ox O2 Delivery O2 Flow Rate FiO2 04/16/18 20:00 98.1 72 18 138/84 (102) 97 04/14/18 17:45 Room Air I&O- Last 24 Hours up to 6 AM 04/16/18 06:00 Intake Total 1885 ml Output Total 1850 ml Balance 35 ml FABIO CORNELIUS MD Apr 16, 2018 20:44
[2018-04-16 23:59] VITALS: BP 118/67
[2018-04-17 04:00] VITALS: BP 119/70
[2018-04-17 05:37] LABS: BASO % 0.9 % (0.0-1.0); EOS # 0.1 10^3/uL (0.0-0.50); EOS % 2.7 % (0.0-3.0); HEMATOCRIT 31.9 % (36.0-47.0); HEMOGLOBIN 11.6 g/dl (12.0-15.5); LYMPH # 1.8 10^3/uL (1.5-4.5); LYMPH % 53.2 % (24.0-44.0); MEAN CORPUSCULAR HEMOGLOBIN 30.7 pg (27.0-33.0); MEAN CORPUSCULAR HGB CONC 36.4 g/dl (32.0-36.5); MEAN CORPUSCULAR VOLUME 84.4 fl (80.0-96.0); MONO # 0.6 10^3/uL (0.0-0.8); MONO % 18.4 % (0.0-5.0); NEUTROPHILS % 22.7 % (36.0-66.0); PLATELET COUNT, AUTOMATED 152 10^3/uL (150-450); RED BLOOD COUNT 3.78 10^6/uL (4.00-5.40); WHITE BLOOD COUNT 3.3 10^3/uL (4.0-10.0)
[2018-04-17 05:46] LABS: NEUTROPHILS # 0.8 10^3/uL (1.8-7.7)
[2018-04-17 05:59] LABS: BLOOD UREA NITROGEN 8 MG/DL (7-18); CALCIUM LEVEL 8.2 MG/DL (8.8-10.2); CARBON DIOXIDE LEVEL 30 MEQ/L (21-32); CHLORIDE LEVEL 105 MEQ/L (98-107); CREATININE FOR GFR 0.46 MG/DL (0.55-1.30); GLOMERULAR FILTRATION RATE > 60.0 (>39); GLUCOSE, FASTING 156 MG/DL (70-100); POTASSIUM SERUM 3.3 MEQ/L (3.5-5.1); SODIUM LEVEL 142 MEQ/L (136-145)
[2018-04-17 08:00] VITALS: BP 135/69
[2018-04-17] MEDS ORDERED: POTASSIUM CHLORIDE 10 MEQ SR TABLET PO ONE (08:00)
[2018-04-17] MEDS: HumaLOG INSULIN (NovoLOG) PER UNIT SC SCH (08:39)
[2018-04-17] MEDS: VITAMIN D 1,000 INTERNATIONAL UNITS TABLET PO SCH (08:39)
[2018-04-17] MEDS: MAXITROL OPHTH OINT 3.5 GM OU SCH (08:40)
[2018-04-17] MEDS: HEPARIN SOD (PORCINE) 5000 UNITS/ML VIAL SC SCH (08:40)
--- NOTE | 2018-04-21 02:07 | DS.PDOC ---
Discharge Summary General Date of Admission Apr 14, 2018 at 16:37 Date of Discharge 04/17/18 Attending Physician: FABIO CORNELIUS MD Specialist/Consultants Involve: ARI MERRITT DO Specialist/Consultants Involve Dr Chen Discharge Summary PROCEDURES PERFORMED DURING STAY: None DISCHARGE DIAGNOSES: High anion gap metabolic acidosis due to ketoacidosis and lacticacidosis Lactacidosis due to metformin Alexsander due to diarrhea and dehydration Abnormal EKG to be evaluated for CAD as outpatient. Petechial rash of the legs possibly due to bactrim. Grade 1 diastolic dysfunction Trace pericardial effusion. COMPLICATIONS/CHIEF COMPLAINT: Abnormal Ekg Metabolic Acidosis Increased Anion Ga. HISTORY OF PRESENT ILLNESS: See history and physical HOSPITAL COURSE: This is a 72-year-old female with past medical history of diabetes, on oral medications, prior history of pancreatitis, who presents with chief complaint of abnormal EKG at primary care doctor's office and 1 week of general malaise, low appetite, fevers, and diarrhea. Patient reports that on 04/04 she had an outpatient eyelid surgery because her eyelids were o bstructing her vision. Postoperatively she was given a course of Bactrim with 14 pills. She completed 9 of those pills, but soon after she started the medication she started having symptoms of generally feeling unwell, low appetite, diarrhea with loose stools, and fevers up to 101. She did not have any cough or shortness of breath. She did go to her doctor's office today to followup on this, and she was noted to have sinus tachycardia with new T-wave inversions in V4-V6. She was sent to the emergency room (ER) for further evaluation. In the ED lab work showed mildly elevated creatinine, lactic acid and very low bicarbonate . In the emergency room, patient was noted to have an anion gap acidosis with an acute kidney injury, and she was given intravenous (IV) fluids and admitted for further evaluation of the acute kidney injury, anion gap acidosis, and abnormal EKG. High Anion gap metabolic acidosis: probably due to diarrhea from bactrim with loss of bicarb in the stools and being on metformin causing lactic acidosis. now corrected. bicarb infusion stopped and put on oral bicarb ALEXSANDER possibly from being on bactrim with mild dehydration from diarrhea now resolved. Abnormal EKG. Patient was noted to have an abnormal EKG with new T-wave inversions. She is completely chest pain free, and troponin was negative. Seen by cardio does not think there is any ischemia going on, think may have hypertensive heart disease. echo showed grade 1 diastolic dysfunction and trace pericardial efussion. Normal LVEF with no wall motion abnormality Will follow up as outpatient and consider work up for CAD if needed. New skin rash. Patient does have a petechial rash on her lower extremities. This could be possible drug rash from the Bactrim. We will continue to monitor this. Given the new medication of Bactrim DISCHARGE MEDICATIONS: Please see below. ALLERGIES: Please see below. PHYSICAL EXAMINATION ON DISCHARGE: VITAL SIGNS: Please see below. GENERAL: She is in no acute distress but appears fatigued HEENT: Bilateral incisions on her eyelids appear clean and without any redness or drainage. Oropharynx clear. CARDIOVASCULAR: Tachycardic. No murmurs, rubs, or gallops. LUNGS: Clear to auscultation bilaterally. ABDOMEN: Mild lower quadrant tenderness. Soft, nondistended. EXTREMITIES: Patient has no clubbing, cyanosis, or edema. SKIN: Patient does have a petechial rash on her lower extremities that does not belgica. NEUROLOGIC: She is alert and oriented times three. No focal neurologic deficits. MUSCULOSKELETAL: Moves all extremities equally. no focal neurodeficits. PSYCHIATRIC: Mood stable. LABORATORY DATA: Please see below. ACTIVITY: [As tolerated]. DIET: Carb consistent DISPOSITION: 01 Home, Self-Care. DISCHARGE INSTRUCTIONS: Follow up PMD in [address] Chen in 3 to 4 weeks. Basic metabolic panel in 1 week DISCHARGE CONDITION: Stable TIME SPENT ON DISCHARGE: Greater than 30 minutes. Vital Signs/I&Os Vital Signs Date Time Temp Pulse Resp B/P (MAP) Pulse Ox O2 Delivery O2 Flow Rate FiO2 04/17/18 08:00 98.1 93 20 135/69 (91) 98 Laboratory Data CBC/BMP Item Value Date Time White Blood Count 3.3 10^3/uL L 04/17/18512 Red Blood Count 3.78 10^6/uL L 04/17/18512 Hemoglobin 11.6 g/dl L 04/17/18512 Hematocrit 31.9 % L 04/17/18512 Mean Corpuscular Hemoglobin 30.7 pg 04/17/18512 Mean Corpuscular Hemoglobin Concent 36.4 g/dl 04/17/18512 Mean Corpuscular Volume 84.4 fl 04/17/18512 Red Cell Distribution Width 12.4 % 04/17/18512 Platelet Count 152 10^3/uL 04/17/18512 Immature Granulocyte % (Auto) 2.1 % 04/17/18512 Neutrophils (%) (Auto) 22.7 % L 04/17/18512 Lymphocytes (%) (Auto) 53.2 % H 04/17/18512 Monocytes (%) (Auto) 18.4 % H 04/17/18512 Eosinophils (%) (Auto) 2.7 % 04/17/18512 Basophils (%) (Auto) 0.9 % 04/17/18512 Neutrophils # (Auto) 0.8 10^3/uL L 04/17/18512 Lymphocytes # (Auto) 1.8 10^3/uL 04/17/18512 Monocytes # (Auto) 0.6 10^3/uL 04/17/18512 Eosinophils # (Auto) 0.1 10^3/uL 04/17/18512 Basophils # (Auto) 0.0 10^3/uL 04/17/18512 Nucleated Red Blood Cells % (auto) 0.0 % 04/17/18512 Sodium Level 142 MEQ/L 04/17/18512 Potassium Level 3.3 MEQ/L L 04/17/18512 Chloride Level 105 MEQ/L 04/17/18512 Carbon Dioxide Level 30 MEQ/L 04/17/18512 Anion Gap 7 MEQ/L L 04/17/18512 Blood Urea Nitrogen 8 MG/DL 04/17/18512 Creatinine 0.46 MG/DL L 04/17/18512 Glomerular Filtration Rate > 60.0 04/17/18512 Fasting Glucose 156 MG/DL H 04/17/18512 Calcium Level 8.2 MG/DL L 04/17/18512 Microbiology Microbiology 04/14/18 Blood Culture - Final, Complete NO GROWTH AFTER 5 DAYS 04/14/18 Blood Culture - Final, Complete NO GROWTH AFTER 5 DAYS 04/14/18 Gastrointestinal Tract Panel (PCR) - Final, Complete 04/14/18 Respiratory Virus Panel (PCR) (MAXX) - Final, Complete Discharge Medications Scheduled (Garlic Oil 1000) 2 Mg Cap, 1,000 MG PO QHS, (Reported) Aspirin (Aspirin 81) 81 Mg Tab, 81 MG PO QHS, (Reported) Canagliflozin (Invokana) 300 Mg Tab, 150 MG PO DAILY, (Reported) Cinnamon Bark (Cinnamon) 500 Mg Tab, 1,000 MG PO TID, (Reported) Magnesium Oxide (Magnesium) 250 Mg Tab, 250 MG PO DAILY, (Reported) Metformin Hydrochloride (Metformin HCl) 500 Mg Tab, 1,000 MG PO BID, (Reported) Montelukast Sodium (Montelukast Sodium) 10 Mg Tab, 10 MG PO QHS, (Reported) Multivitamins (Multivitamin Adults) 1 Tab Tab, 1 TAB PO DAILY, (Reported) Neomycin/Polymyxin/Dexameth (Maxitrol 3.5-92074-5.1) 1 Oin Oin, 1 APLCT OU BID, (Reported) APPLY TO EYES QAM AND QHS Vitamin D (Vitamin D) 1,000 Unit Cap, 1,000 UNIT PO DAILY, (Reported) Scheduled PRN Albuterol Sulfate (Ventolin Hfa) 108 Mcg/Act Aer, 2 PUFF INH Q4H PRN for SHORTNESS OF BREATH, (Reported) Allergies Coded Allergies: Latex (Verified Allergy, Intermediate, rash, 04/03/18) Cefazolin (Verified Allergy, Unknown, 04/03/18) Cefprozil (Verified Allergy, Unknown, hives, 04/03/18) Doxycycline (Verified Allergy, Unknown, 04/03/18) Metronidazole (Verified Allergy, Unknown, hives, 04/03/18) Penicillins (Verified Allergy, Unknown, 04/03/18) SEAFOOD (Verified Allergy, Unknown, 04/03/18) Sulfamethoxazole w/Trimethoprim (Verified Allergy, Unknown, 04/03/18) FABIO CORNELIUS MD Apr 21, 2018 02:07
== END 2018-04-17 12:09 | disposition home or self-care (01) | DRG 683 ==
LOC: M ED 11:31 → M ED INP 16:37 → M PCU 18:05
PROVIDERS: ADMIT Internal Medicine; ATTEND Internal Medicine Nephrology
DX: N17.9 Acute kidney failure, unspecified (principal); E87.2 Acidosis; R19.7 Diarrhea, unspecified; E11.9 Type 2 diabetes mellitus without complications; L27.0 Generalized skin eruption due to drugs and medicaments taken internally; T36.8X5A Adverse effect of other systemic antibiotics, initial encounter; T38.3X5A Adverse effect of insulin and oral hypoglycemic [antidiabetic] drugs, initial encounter; Z79.84 Long term (current) use of oral hypoglycemic drugs; Z90.49 Acquired absence of other specified parts of digestive tract; Z88.0 Allergy status to penicillin; Z88.1 Allergy status to other antibiotic agents; Z88.2 Allergy status to sulfonamides; Z88.8 Allergy status to other drugs, medicaments and biological substances; Z91.013 Allergy to seafood; Z98.890 Other specified postprocedural states

== ENCOUNTER → 2018-04-24 | Outpatient (CLI) | payer MEDICARE ==
[~2018-04-24] MED LIST changes: +INVO300T PO; +MAXI0.1O OU
[2018-04-24 13:29] LABS: BASO # 0.1 10^3/uL (0.0-0.2); BASO % 1.1 % (0.0-1.0); EOS # 0.1 10^3/uL (0.0-0.50); EOS % 2.2 % (0.0-3.0); HEMATOCRIT 37.9 % (36.0-47.0); HEMOGLOBIN 12.6 g/dl (12.0-15.5); LYMPH # 2.3 10^3/uL (1.5-4.5); MEAN CORPUSCULAR HEMOGLOBIN 31.1 pg (27.0-33.0); MEAN CORPUSCULAR HGB CONC 33.2 g/dl (32.0-36.5); MEAN CORPUSCULAR VOLUME 93.6 fl (80.0-96.0); MONO # 1.1 10^3/uL (0.0-0.8); MONO % 17.3 % (0.0-5.0); NEUTROPHILS # 2.7 10^3/uL (1.8-7.7); NEUTROPHILS % 42.6 % (36.0-66.0); PLATELET COUNT, AUTOMATED 404 10^3/uL (150-450); RED BLOOD COUNT 4.05 10^6/uL (4.00-5.40); WHITE BLOOD COUNT 6.3 10^3/uL (4.0-10.0)
[2018-04-24 13:44] LABS: BLOOD UREA NITROGEN 8 MG/DL (7-18); CALCIUM LEVEL 9.1 MG/DL (8.8-10.2); CARBON DIOXIDE LEVEL 29 MEQ/L (21-32); CHLORIDE LEVEL 105 MEQ/L (98-107); CREATININE FOR GFR 0.56 MG/DL (0.55-1.30); GLOMERULAR FILTRATION RATE > 60.0 (>39); GLUCOSE, FASTING 161 MG/DL (70-100); MAGNESIUM LEVEL 2.4 MG/DL (1.8-2.4); SODIUM LEVEL 140 MEQ/L (136-145)
== END ==
LOC: M SMT 10:07
PROVIDERS: ATTEND Physician Assistant
DX: N17.9 Acute kidney failure, unspecified (principal)

== ENCOUNTER → 2018-06-02 | Outpatient (CLI) | payer MEDICARE ==
[~2018-06-02] MED LIST changes: -/AMLO25TA PO; -/ONDA4TA PO; -/PANT40TA PO; +ACET-716 PO; -ACET30TAB PO; -ASPI1TAB PO; +ASPI81TA26 PO; +FLUT1SPR2; -FLUTISP; +NORV2TAB PO; +ONDA-1 PO; +PROT1TAB2 PO; +[UNRECOGNIZED DRUG - CODE] PO; -[UNRECOGNIZED DRUG - CODE] PO
[2018-06-02 10:39] LABS: MALB URINE SIEMENS 36.6 MG/L; MAU/CREAT RATIO 26.1 MCG/MG (0.0-30.0)
[2018-06-02 10:58] LABS: ALT/SGPT 20 U/L (12-78); BILIRUBIN,TOTAL 0.7 MG/DL (0.2-1.0); BLOOD UREA NITROGEN 10 MG/DL (7-18); CALCIUM LEVEL 9.1 MG/DL (8.8-10.2); CARBON DIOXIDE LEVEL 29 MEQ/L (21-32); CHLORIDE LEVEL 104 MEQ/L (98-107); CREATININE FOR GFR 0.56 MG/DL (0.55-1.30); GLOMERULAR FILTRATION RATE > 60.0 (>39); GLUCOSE, FASTING 182 MG/DL (70-100); POTASSIUM SERUM 4.6 MEQ/L (3.5-5.1); SODIUM LEVEL 139 MEQ/L (136-145); TOTAL PROTEIN 6.8 GM/DL (6.4-8.2)
[2018-06-02 11:27] LABS: HEMOGLOBIN A1c 7.3 %
== END ==
LOC: M SMT 08:18
PROVIDERS: ATTEND Family Medicine
DX: E11.65 Type 2 diabetes mellitus with hyperglycemia (principal)

== ENCOUNTER → 2018-09-07 | Outpatient (CLI) | payer MEDICARE ==
[2018-09-07 17:26] LABS: BLOOD UREA NITROGEN 8 MG/DL (7-18); CALCIUM LEVEL 9.1 MG/DL (8.8-10.2); CARBON DIOXIDE LEVEL 28 MEQ/L (21-32); CHLORIDE LEVEL 103 MEQ/L (98-107); CREATININE FOR GFR 0.62 MG/DL (0.55-1.30); GLOMERULAR FILTRATION RATE > 60.0 (>39); GLUCOSE, FASTING 240 MG/DL (70-100); POTASSIUM SERUM 4.5 MEQ/L (3.5-5.1); SODIUM LEVEL 137 MEQ/L (136-145)
[2018-09-07 18:13] LABS: HEMOGLOBIN A1c 8.7 %
== END ==
LOC: M SMT 11:22
PROVIDERS: ATTEND Physician Assistant
DX: E11.36 Type 2 diabetes mellitus with diabetic cataract (principal)

== ENCOUNTER → 2018-09-10 | Outpatient (CLI) | payer MEDICARE ==
--- NOTE | 2018-09-10 10:10 | REP ---
Clinical: Right foot pain Technique: AP, lateral, bilateral oblique views right foot . Findings: The osseous structures and joint spaces are intact and essentially normal for age. Lateral view demonstrates calcaneal heal spur. There is no evidence for acute fracture or dislocation. Surrounding soft tissues are unremarkable. No subcutaneous emphysema or radiodense foreign body. Impression: Age-appropriate right foot series. No acute fracture or dislocation. Electronically Signed by Roddy Christensen MD 09/10/2018 10:00 A
== END ==
LOC: M SMT 09:45
PROVIDERS: ATTEND Family Medicine
DX: M79.671 Pain in right foot (principal)

== ENCOUNTER → 2018-10-08 | Outpatient (CLI) | payer MEDICARE ==
[2018-10-08 17:11] LABS: BASO % 0.6 % (0.0-1.0); EOS # 0.1 10^3/uL (0.0-0.50); EOS % 1.5 % (0.0-3.0); HEMATOCRIT 38.4 % (36.0-47.0); HEMOGLOBIN 13.1 g/dl (12.0-15.5); LYMPH # 1.4 10^3/uL (1.5-4.5); LYMPH % 21.4 % (24.0-44.0); MEAN CORPUSCULAR HEMOGLOBIN 31.5 pg (27.0-33.0); MEAN CORPUSCULAR HGB CONC 34.1 g/dl (32.0-36.5); MEAN CORPUSCULAR VOLUME 92.3 fl (80.0-96.0); MONO % 15.3 % (0.0-5.0); NEUTROPHILS % 60.1 % (36.0-66.0); PLATELET COUNT, AUTOMATED 314 10^3/uL (150-450); RED BLOOD COUNT 4.16 10^6/uL (4.00-5.40); WHITE BLOOD COUNT 6.6 10^3/uL (4.0-10.0)
[2018-10-08 17:29] LABS: ALBUMIN 3.4 GM/DL (3.2-5.2); ALT/SGPT 27 U/L (12-78); BILIRUBIN,DIRECT 0.2 MG/DL (0.0-0.2); BILIRUBIN,TOTAL 0.7 MG/DL (0.2-1.0); BLOOD UREA NITROGEN 10 MG/DL (7-18); CALCIUM LEVEL 8.6 MG/DL (8.8-10.2); CARBON DIOXIDE LEVEL 31 MEQ/L (21-32); CHLORIDE LEVEL 102 MEQ/L (98-107); CPK CREATINE PHOSPHOKINASE 24 U/L (26-192); CREATININE FOR GFR 0.54 MG/DL (0.55-1.30); GLOMERULAR FILTRATION RATE > 60.0 (>39); GLUCOSE, FASTING 200 MG/DL (70-100); LIPASE 185 U/L (73-393); SODIUM LEVEL 140 MEQ/L (136-145); TOTAL PROTEIN 6.2 GM/DL (6.4-8.2)
== END ==
LOC: M SMT 12:04
PROVIDERS: ATTEND Physician Assistant
DX: R19.7 Diarrhea, unspecified (principal)

== ENCOUNTER → 2018-12-07 | Outpatient (CLI) | payer MEDICARE ==
[2018-12-07 09:59] LABS: BASO # 0.1 10^3/uL (0.0-0.2); BASO % 0.9 % (0.0-1.0); EOS # 0.1 10^3/uL (0.0-0.5); EOS % 1.8 % (0.0-3.0); HEMATOCRIT 36.4 % (36.0-47.0); HEMOGLOBIN 12.2 g/dl (12.0-15.5); LYMPH # 1.8 10^3/uL (1.5-5.0); LYMPH % 26.5 % (24.0-44.0); MEAN CORPUSCULAR HEMOGLOBIN 30.8 pg (27.0-33.0); MEAN CORPUSCULAR HGB CONC 33.5 g/dl (32.0-36.5); MEAN CORPUSCULAR VOLUME 91.9 fl (80.0-96.0); MONO # 0.9 10^3/uL (0.0-0.8); MONO % 12.9 % (0.0-5.0); NEUTROPHILS # 3.8 10^3/uL (1.5-8.5); NEUTROPHILS % 57.3 % (36.0-66.0); PLATELET COUNT, AUTOMATED 273 10^3/uL (150-450); RED BLOOD COUNT 3.96 10^6/uL (4.00-5.40); WHITE BLOOD COUNT 6.7 10^3/uL (4.0-10.0)
[2018-12-07 10:15] LABS: HEMOGLOBIN A1c 8.4 %
[2018-12-07 10:45] LABS: ALBUMIN 3.4 GM/DL (3.2-5.2); ALT/SGPT 27 U/L (12-78); BILIRUBIN,TOTAL 0.6 MG/DL (0.2-1.0); BLOOD UREA NITROGEN 10 MG/DL (7-18); CALCIUM LEVEL 8.8 MG/DL (8.8-10.2); CARBON DIOXIDE LEVEL 29 MEQ/L (21-32); CHLORIDE LEVEL 103 MEQ/L (98-107); CHOLESTEROL LEVEL 136 MG/DL (<200); CHOLESTEROL RISK RATIO 2.893 (<5); CREATININE FOR GFR 0.57 MG/DL (0.55-1.30); GLOMERULAR FILTRATION RATE > 60.0 (>39); GLUCOSE, FASTING 284 MG/DL (70-100); HDL CHOLESTEROL 47 MG/DL (>40); LDL CHOLESTEROL 63 MG/DL (<100); NON-HDL-C 89 MG/DL; POTASSIUM SERUM 4.4 MEQ/L (3.5-5.1); SODIUM LEVEL 137 MEQ/L (136-145); TOTAL PROTEIN 6.5 GM/DL (6.4-8.2); TRIGLYCERIDES LEVEL 132 MG/DL (<150)
== END ==
LOC: M SMT 08:16
PROVIDERS: ATTEND Family Medicine
DX: E11.65 Type 2 diabetes mellitus with hyperglycemia (principal); E78.1 Pure hyperglyceridemia

== ENCOUNTER → 2019-03-09 | Outpatient (CLI) | payer MEDICARE ==
[2019-03-09 13:07] LABS: BLOOD UREA NITROGEN 8 MG/DL (7-18); CALCIUM LEVEL 9.3 MG/DL (8.8-10.2); CARBON DIOXIDE LEVEL 31 MEQ/L (21-32); CHLORIDE LEVEL 103 MEQ/L (98-107); GLOMERULAR FILTRATION RATE > 60.0 (>39); GLUCOSE, FASTING 309 MG/DL (70-100); POTASSIUM SERUM 4.6 MEQ/L (3.5-5.1); SODIUM LEVEL 139 MEQ/L (136-145)
[2019-03-09 14:19] LABS: HEMOGLOBIN A1c 10.9 %
== END ==
LOC: M PLALAB 09:09
PROVIDERS: ATTEND Physician Assistant
DX: E11.65 Type 2 diabetes mellitus with hyperglycemia (principal)

== ENCOUNTER → 2019-03-30 | Outpatient (CLI) | payer MEDICARE ==
[~2019-03-30] MED LIST changes: +MONT10TA4 PO
[2019-03-30 13:33] LABS: BASO % 0.5 % (0.0-1.0); EOS # 0.1 10^3/uL (0.0-0.5); EOS % 1.3 % (0.0-3.0); HEMATOCRIT 39.1 % (36.0-47.0); HEMOGLOBIN 13.4 g/dl (12.0-15.5); LYMPH # 2.1 10^3/uL (1.5-5.0); LYMPH % 33.2 % (24.0-44.0); MEAN CORPUSCULAR HEMOGLOBIN 31.4 pg (27.0-33.0); MEAN CORPUSCULAR HGB CONC 34.3 g/dl (32.0-36.5); MEAN CORPUSCULAR VOLUME 91.6 fl (80.0-96.0); MONO # 0.7 10^3/uL (0.0-0.8); MONO % 10.8 % (0.0-5.0); NEUTROPHILS # 3.3 10^3/uL (1.5-8.5); NEUTROPHILS % 53.7 % (36.0-66.0); PLATELET COUNT, AUTOMATED 291 10^3/uL (150-450); RED BLOOD COUNT 4.27 10^6/uL (4.00-5.40); WHITE BLOOD COUNT 6.2 10^3/uL (4.0-10.0)
[2019-03-30 13:57] LABS: ERYTHROCYTE SEDIMENTATION RATE 9 mm/hr (0-30)
[2019-03-30 14:13] LABS: ALBUMIN 3.9 GM/DL (3.2-5.2); ALT/SGPT 23 U/L (12-78); BILIRUBIN,TOTAL 0.7 MG/DL (0.2-1.0); BLOOD UREA NITROGEN 9 MG/DL (7-18); CALCIUM LEVEL 9.9 MG/DL (8.8-10.2); CARBON DIOXIDE LEVEL 31 MEQ/L (21-32); CHLORIDE LEVEL 103 MEQ/L (98-107); CREATININE FOR GFR 0.57 MG/DL (0.55-1.30); FOLATE > 24.0 NG/ML; FREE T4 1.18 NG/DL (0.76-1.46); GLOMERULAR FILTRATION RATE > 60.0 (>39); GLUCOSE, FASTING 267 MG/DL (70-100); POTASSIUM SERUM 4.7 MEQ/L (3.5-5.1); RHEUMATOID FACTOR QUANT < 10.0 IU/ML (<15.0); SODIUM LEVEL 139 MEQ/L (136-145); TOTAL PROTEIN 6.9 GM/DL (6.4-8.2); VITAMIN B12 LEVEL 215 PG/ML
[2019-03-30 14:40] LABS: HEMOGLOBIN A1c 10.6 %
== END ==
LOC: M PLALAB 11:10
PROVIDERS: ATTEND Psychiatry & Neurology Neurology
DX: E11.9 Type 2 diabetes mellitus without complications (principal); E07.9 Disorder of thyroid, unspecified; G31.84 Mild cognitive impairment of uncertain or unknown etiology

== ENCOUNTER → 2019-06-08 | Outpatient (CLI) | payer MEDICARE ==
[2019-06-08 11:34] LABS: BLOOD UREA NITROGEN 12 MG/DL (7-18); CALCIUM LEVEL 9.3 MG/DL (8.8-10.2); CARBON DIOXIDE LEVEL 29 MEQ/L (21-32); CHLORIDE LEVEL 103 MEQ/L (98-107); CREATININE FOR GFR 0.58 MG/DL (0.55-1.30); GLOMERULAR FILTRATION RATE > 60.0 (>39); GLUCOSE, FASTING 185 MG/DL (70-100); POTASSIUM SERUM 4.3 MEQ/L (3.5-5.1); SODIUM LEVEL 138 MEQ/L (136-145)
[2019-06-08 11:53] LABS: HEMOGLOBIN A1c 9.2 %
== END ==
LOC: M PLALAB 08:10
PROVIDERS: ATTEND Physician Assistant
DX: E11.65 Type 2 diabetes mellitus with hyperglycemia (principal)

== ENCOUNTER → 2019-09-20 | Outpatient (REF) | payer MEDICARE ==
[2019-10-20 14:58] LABS: BASO % 0.7 % (0.0-1.0); EOS # 0.1 10^3/uL (0.0-0.5); EOS % 2.4 % (0.0-3.0); HEMATOCRIT 37.8 % (36.0-47.0); HEMOGLOBIN 12.6 g/dl (12.0-15.5); LYMPH # 1.8 10^3/uL (1.5-5.0); LYMPH % 32.7 % (24.0-44.0); MEAN CORPUSCULAR HEMOGLOBIN 31.6 pg (27.0-33.0); MEAN CORPUSCULAR HGB CONC 33.3 g/dl (32.0-36.5); MEAN CORPUSCULAR VOLUME 94.7 fl (80.0-96.0); MONO # 0.8 10^3/uL (0.0-0.8); MONO % 14.5 % (0.0-5.0); NEUTROPHILS # 2.7 10^3/uL (1.5-8.5); NEUTROPHILS % 49.2 % (36.0-66.0); PLATELET COUNT, AUTOMATED 286 10^3/uL (150-450); RED BLOOD COUNT 3.99 10^6/uL (4.00-5.40); WHITE BLOOD COUNT 5.5 10^3/uL (4.0-10.0)
[2019-11-02 09:29] LABS: ALBUMIN 3.7 GM/DL (3.2-5.2); ALT/SGPT 18 U/L (12-78); BILIRUBIN,TOTAL 0.3 MG/DL (0.2-1.0); BLOOD UREA NITROGEN 10 MG/DL (7-18); CALCIUM LEVEL 9.2 MG/DL (8.8-10.2); CARBON DIOXIDE LEVEL 31 MEQ/L (21-32); CHLORIDE LEVEL 106 MEQ/L (98-107); CREATININE FOR GFR 0.68 MG/DL (0.55-1.30); GLOMERULAR FILTRATION RATE > 60.0 (>39); GLUCOSE, FASTING 103 MG/DL (70-100); MALB URINE SIEMENS 21.3 MG/L; POTASSIUM SERUM 4.6 MEQ/L (3.5-5.1); SODIUM LEVEL 143 MEQ/L (136-145); TOTAL PROTEIN 6.6 GM/DL (6.4-8.2)
== END ==
LOC: M PLALAB 10:01
PROVIDERS: ATTEND Family Medicine
DX: E11.65 Type 2 diabetes mellitus with hyperglycemia (principal)

== ENCOUNTER → 2019-12-27 | Outpatient (CLI) | payer MEDICARE ==
[2019-12-27 14:41] LABS: HEMOGLOBIN A1c 6.5 %
[2019-12-27 14:44] LABS: ALBUMIN 3.8 GM/DL (3.2-5.2); ALT/SGPT 13 U/L (12-78); BILIRUBIN,TOTAL 0.6 MG/DL (0.2-1.0); BLOOD UREA NITROGEN 10 MG/DL (7-18); CALCIUM LEVEL 9.4 MG/DL (8.8-10.2); CARBON DIOXIDE LEVEL 30 MEQ/L (21-32); CHLORIDE LEVEL 105 MEQ/L (98-107); CHOLESTEROL LEVEL 193 MG/DL (<200); CHOLESTEROL RISK RATIO 3.112 (<5); CREATININE FOR GFR 0.67 MG/DL (0.55-1.30); GLOMERULAR FILTRATION RATE > 60.0 (>39); GLUCOSE, FASTING 120 MG/DL (70-100); HDL CHOLESTEROL 62 MG/DL (>40); LDL CHOLESTEROL 111 MG/DL (<100); NON-HDL-C 131 MG/DL; POTASSIUM SERUM 4.6 MEQ/L (3.5-5.1); SODIUM LEVEL 139 MEQ/L (136-145); TOTAL PROTEIN 6.7 GM/DL (6.4-8.2); TRIGLYCERIDES LEVEL 102 MG/DL (<150)
== END ==
LOC: M PLALAB 09:01
PROVIDERS: ATTEND Physician Assistant
DX: E11.65 Type 2 diabetes mellitus with hyperglycemia (principal); F34.1 Dysthymic disorder

== ENCOUNTER → 2020-03-24 | Outpatient (CLI) | payer MEDICARE ==
[~2020-03-24] MED LIST changes: +MONT10TA10 PO; -MONT10TA4 PO
[2020-03-24 10:39] LABS: BASO % 0.7 % (0.0-1.0); EOS # 0.1 10^3/uL (0.0-0.5); EOS % 1.9 % (0.0-3.0); HEMATOCRIT 36.3 % (36.0-47.0); HEMOGLOBIN 12.4 g/dl (12.0-15.5); LYMPH # 1.9 10^3/uL (1.5-5.0); LYMPH % 33.5 % (24.0-44.0); MEAN CORPUSCULAR HEMOGLOBIN 31.3 pg (27.0-33.0); MEAN CORPUSCULAR HGB CONC 34.2 g/dl (32.0-36.5); MEAN CORPUSCULAR VOLUME 91.7 fl (80.0-96.0); MONO # 0.8 10^3/uL (0.0-0.8); MONO % 13.1 % (0.0-5.0); NEUTROPHILS # 2.9 10^3/uL (1.5-8.5); NEUTROPHILS % 50.1 % (36.0-66.0); PLATELET COUNT, AUTOMATED 273 10^3/uL (150-450); RED BLOOD COUNT 3.96 10^6/uL (4.00-5.40); WHITE BLOOD COUNT 5.8 10^3/uL (4.0-10.0)
[2020-03-24 10:55] LABS: HEMOGLOBIN A1c 6.8 %
[2020-03-24 11:13] LABS: ALBUMIN 3.6 GM/DL (3.2-5.2); ALT/SGPT 18 U/L (12-78); BILIRUBIN,TOTAL 0.7 MG/DL (0.2-1.0); BLOOD UREA NITROGEN 10 MG/DL (7-18); CALCIUM LEVEL 9.1 MG/DL (8.8-10.2); CARBON DIOXIDE LEVEL 31 MEQ/L (21-32); CHLORIDE LEVEL 105 MEQ/L (98-107); CREATININE FOR GFR 0.56 MG/DL (0.55-1.30); GLOMERULAR FILTRATION RATE > 60.0 (>39); GLUCOSE, FASTING 120 MG/DL (70-100); POTASSIUM SERUM 4.5 MEQ/L (3.5-5.1); SODIUM LEVEL 142 MEQ/L (136-145); TOTAL PROTEIN 6.5 GM/DL (6.4-8.2)
== END ==
LOC: M PLALAB 08:40
PROVIDERS: ATTEND Family Medicine
DX: E11.65 Type 2 diabetes mellitus with hyperglycemia (principal)

== ENCOUNTER → 2020-06-26 | Outpatient (CLI) | payer MEDICARE ==
[2020-06-26 13:28] LABS: BASO % 0.9 % (0.0-1.0); EOS # 0.1 10^3/uL (0.0-0.5); EOS % 2.6 % (0.0-3.0); HEMATOCRIT 37.6 % (36.0-47.0); HEMOGLOBIN 12.7 g/dl (12.0-15.5); LYMPH # 1.4 10^3/uL (1.5-5.0); LYMPH % 30.5 % (24.0-44.0); MEAN CORPUSCULAR HEMOGLOBIN 30.8 pg (27.0-33.0); MEAN CORPUSCULAR HGB CONC 33.8 g/dl (32.0-36.5); MEAN CORPUSCULAR VOLUME 91.3 fl (80.0-96.0); MONO # 0.7 10^3/uL (0.0-0.8); MONO % 13.9 % (2.0-8.0); NEUTROPHILS # 2.4 10^3/uL (1.5-8.5); NEUTROPHILS % 51.7 % (36.0-66.0); PLATELET COUNT, AUTOMATED 272 10^3/uL (150-450); RED BLOOD COUNT 4.12 10^6/uL (4.00-5.40); WHITE BLOOD COUNT 4.7 10^3/uL (4.0-10.0)
[2020-06-26 14:19] LABS: ALBUMIN 3.7 GM/DL (3.2-5.2); ALT/SGPT 21 U/L (12-78); BILIRUBIN,TOTAL 0.7 MG/DL (0.2-1.0); BLOOD UREA NITROGEN 9 MG/DL (7-18); CALCIUM LEVEL 8.7 MG/DL (8.8-10.2); CARBON DIOXIDE LEVEL 27 MEQ/L (21-32); CHLORIDE LEVEL 105 MEQ/L (98-107); CHOLESTEROL LEVEL 166 MG/DL (<200); CHOLESTEROL RISK RATIO 3.074 (<5); CREATININE FOR GFR 0.52 MG/DL (0.55-1.30); GLOMERULAR FILTRATION RATE > 60.0 (>39); GLUCOSE, FASTING 194 MG/DL (70-100); HDL CHOLESTEROL 54 MG/DL (>40); LDL CHOLESTEROL 86 MG/DL (<100); NON-HDL-C 112 MG/DL; POTASSIUM SERUM 4.1 MEQ/L (3.5-5.1); SODIUM LEVEL 140 MEQ/L (136-145); TOTAL PROTEIN 6.7 GM/DL (6.4-8.2); TRIGLYCERIDES LEVEL 128 MG/DL (<150)
== END ==
LOC: M PLALAB 09:15
PROVIDERS: ATTEND Physician Assistant
DX: E11.65 Type 2 diabetes mellitus with hyperglycemia (principal); F34.1 Dysthymic disorder

== ENCOUNTER → 2020-09-26 | Outpatient (CLI) | payer OTHER ==
[2020-09-26 10:48] LABS: BLOOD UREA NITROGEN 11 MG/DL (7-18); CALCIUM LEVEL 9.2 MG/DL (8.8-10.2); CARBON DIOXIDE LEVEL 30 MEQ/L (21-32); CHLORIDE LEVEL 105 MEQ/L (98-107); CREATININE FOR GFR 0.64 MG/DL (0.55-1.30); GLOMERULAR FILTRATION RATE > 60.0 (>39); GLUCOSE, FASTING 251 MG/DL (70-100); POTASSIUM SERUM 4.6 MEQ/L (3.5-5.1); SODIUM LEVEL 139 MEQ/L (136-145)
[2020-09-26 10:51] LABS: HEMOGLOBIN A1c 8.4 %
== END ==
LOC: M PLALAB 08:14
PROVIDERS: ATTEND Family Medicine
DX: E11.65 Type 2 diabetes mellitus with hyperglycemia (principal)

== ENCOUNTER 2020-11-09 13:22 | Emergency (ER) | payer OTHER ==
[~2020-11-09] VITALS: Ht 162.6 cm; Wt 86.2 kg
[2020-11-09] MEDS ORDERED: MEMA10TA19 PO (13:55)
[2020-11-09] MEDS ORDERED: MAGN500T12 PO (13:55)
[2020-11-09] MEDS ORDERED: TOUJ1.2I SC (13:55)
[2020-11-09] MEDS ORDERED: CATAPLEX (13:55)
[2020-11-09] MEDS ORDERED: VALS1TAB67 PO (13:55)
[2020-11-09] MEDS ORDERED: LORA10TA3 PO (13:55)
[2020-11-09] MEDS ORDERED: TUMETAB PO (13:55)
[2020-11-09 13:58] VITALS: BP 166/90
[2020-11-09] MEDS ORDERED: ACETAMINOPHEN 325 MG TAB PO ONE (14:15)
--- NOTE | 2020-11-09 14:36 | REP ---
INDICATION: DYSPNEA/COUGH. COMPARISON: April 14, 2018. TECHNIQUE: Portable upright AP chest radiograph. FINDINGS: Right hemidiaphragm remains quite elevated unchanged. Lungs are otherwise well inflated and clear. The pleural angles are sharp. The heart is not enlarged. Aorta is tortuous. EKG electrodes are seen. IMPRESSION: Elevated right hemidiaphragm. No acute disease. <Electronically signed by Russ Puente > 11/09/20 [id number]
[2020-11-09 15:41] LABS: BASO % 0.3 % (0.0-1.0); HEMATOCRIT 37.1 % (36.0-47.0); LYMPH # 0.8 10^3/uL (1.5-5.0); LYMPH % 13.3 % (24.0-44.0); MEAN CORPUSCULAR HEMOGLOBIN 31.5 pg (27.0-33.0); MEAN CORPUSCULAR VOLUME 89.8 fl (80.0-96.0); MONO # 0.9 10^3/uL (0.0-0.8); MONO % 15.7 % (2.0-8.0); NEUTROPHILS # 4.1 10^3/uL (1.5-8.5); NEUTROPHILS % 70.4 % (36.0-66.0); PLATELET COUNT, AUTOMATED 215 10^3/uL (150-450); RED BLOOD COUNT 4.13 10^6/uL (4.00-5.40); WHITE BLOOD COUNT 5.8 10^3/uL (4.0-10.0)
[2020-11-09 16:20] LABS: ALBUMIN 3.4 GM/DL (3.2-5.2); ALT/SGPT 27 U/L (12-78); BILIRUBIN,DIRECT 0.1 MG/DL (0.0-0.2); BILIRUBIN,TOTAL 0.5 MG/DL (0.2-1.0); BLOOD UREA NITROGEN 7 MG/DL (7-18); CALCIUM LEVEL 8.6 MG/DL (8.8-10.2); CARBON DIOXIDE LEVEL 24 MEQ/L (21-32); CHLORIDE LEVEL 103 MEQ/L (98-107); CK-MB VALUE MASS 1.2 NG/ML (<3.6); CPK CREATINE PHOSPHOKINASE 81 U/L (26-192); CREATININE FOR GFR 0.66 MG/DL (0.55-1.30); GLOMERULAR FILTRATION RATE > 60.0 (>39); GLUCOSE, FASTING 189 MG/DL (70-100); MB/CK RELATIVE INDEX 1.48 (< OR =4); NT-PRO BNP 117 PG/ML (<450); POTASSIUM SERUM 3.5 MEQ/L (3.5-5.1); SODIUM LEVEL 135 MEQ/L (136-145); THYROID STIMULATING HORMONE 0.476 uIU/ML (0.358-3.740); THYROXINE (T4) 9.6 UG/DL (4.5-12.0); TOTAL PROTEIN 7.1 GM/DL (6.4-8.2); TROPONIN I < 0.02 NG/ML (< 0.10)
[2020-11-09] MEDS ORDERED: PRED10TA2 PO (18:50)
[2020-11-09] MEDS ORDERED: predniSONE 20 MG TAB PO ONE (18:55)
--- NOTE | 2020-11-09 21:45 | ECGEPIP ---
[facility] - ED Test Date: 2020-11-09 Pat Name: ZINA VELÁSQUEZ Department: Room: - Gender: Female Employment Educational Coord: hollisgiana : 1945 Requested By: CLARISA GREGORY Order Number: [id number] Reading MD: Alivia Rachel Measurements Intervals [place] Rate: 112 P: 21 MT: 128 QRS: 3 QRSD: 88 T: 117 QT: 306 QTc: 417 Interpretive Statements Sinus tachycardia Nonspecific ST and T wave abnormality less pronounced changes 04/25/18 Electronically Signed on 11-09-2020 21:44:34 EDT by Alivia Rachel
== END 2020-11-09 20:28 | disposition home or self-care (01) ==
LOC: EDBD 13:22 → M ED 13:22
DX: R05 Cough (principal); R50.9 Fever, unspecified; U07.1 COVID-19; J44.9 Chronic obstructive pulmonary disease, unspecified; J45.909 Unspecified asthma, uncomplicated; Z79.899 Other long term (current) drug therapy; Z79.82 Long term (current) use of aspirin; Z79.4 Long term (current) use of insulin; Z88.1 Allergy status to other antibiotic agents; Z88.2 Allergy status to sulfonamides; Z88.8 Allergy status to other drugs, medicaments and biological substances; Z91.018 Allergy to other foods; Z91.040 Latex allergy status

== ENCOUNTER 2020-11-10 08:06 | Outpatient (CLI) | payer OTHER ==
[~2020-11-10] VITALS: Ht 162.6 cm; Wt 86.4 kg
--- NOTE | 2020-11-10 03:35 | HPEPDOC ---
[facility] Medical History & Physical Date of Admission Nov 10, 2020 Date of Service: Nov 10, 2020 Attending Physician: MURRAY ANDRADE MD History and Physical CHIEF COMPLAINT: [75 y/o female c/o fevers, malaise x2 days] HISTORY OF PRESENT ILLNESS: [This is a 75 y/o female with a pmh of copd, asthma, dm2, chronic pancreatitis who presented to our ED on 11/09 with a cc of malaise, fevers and cough for 2 days. Patient states that symptoms onset suddenly and have gradually worsened and so decided to come to the ED for evaluation. Patient states that she describes her current illness as making her feel "overall blah." Patient, at the time of my exam, denies any chest pain, shortness of breath, hemoptysis, calf pain, abd pain, n/v/d/c, pedal edema, recent travel, sick contacts. Patient found to be COVID+ in our emergency department. Patient tells me she does not believe she received the vaccine.] PAST MEDICAL HISTORY: 1. [See HPI PAST SURGICAL HISTORY: 1. [Blepharoplasty]. 2. [Tonsillectomy]. 3. [Appendectomy 4. Cholecystectomy 5. Umbilical hernia repair 6. R Breast Lumpectomy 7. section]. SOCIAL HISTORY: Tobacco use:[Denies] ETOH: [Denies] Illicit drug use: [Denies] FAMILY HISTORY: Reviewed - none pertinent ALLERGIES: Please see below. REVIEW OF SYSTEMS: CONSTITUTIONAL: [Admits to fevers, malaise]. HEENT: [Admits to headache]. CARDIOVASCULAR: [Denies chest pain, palpitations]. RESPIRATORY: [Admits to cough. Denies sob]. GASTROINTESTINAL: [Denies abd pain, n/v/d/c]. GENITOURINARY: [Denies dysuria]. SKIN: [Denies rash]. MUSCULOSKELETAL: [Denies acute joint/back pain]. NEUROLOGICAL: [Denies syncope, paresthesias]. ENDOCRINE: [Hx of DM]. HEMATOLOGIC/LYMPHATIC: [Denies hx of vte]. HOME MEDICATIONS: Please see below. PHYSICAL EXAMINATION: VITAL SIGNS: Please see below GENERAL APPEARANCE: [75 y/o female who is alert and oriented to all questioning. She does not appear to be in any acute distress]. HEENT: [No mass or lesion. EOMI. No scleral icterus. Nares patent. oral mucosa moist]. CARDIOVASCULAR: [Regular rate, rhythm. No murmurs, rubs, gallops]. LUNGS: [Good air flow b/l. No wheezing, rales, rhonchi]. ABDOMEN: [Soft, nontender]. MUSCULOSKELETAL: [No joint deformity noted]. EXTREMITIES: [No pedal edema. No overlying skin changes]. NEUROLOGICAL: [Speech clear. A+Ox3. No focal deficits]. PSYCHIATRIC: [Mood and affect appear appropriate]. LABORATORY DATA: See below. IMAGING: [CXR: FINDINGS: Right hemidiaphragm remains quite elevated unchanged. Lungs are otherwise well inflated and clear. The pleural angles are sharp. The heart is not enlarged. Aorta is tortuous. EKG electrodes are seen. IMPRESSION: Elevated right hemidiaphragm. No acute disease.] MICROBIOLOGY: Please see below. ASSESSMENT: [This is a 75 y/o female with a pmh of copd, asthma, dm2, chronic pancreatitis who presented to our ED on 11/09 with a cc of malaise, fevers and cough for 2 days. Patient found to be COVID+ in our emergency department. Patient tells me she does not believe she received the vaccine]. . PLAN: 1. [COVID19 - Patient does not meet hospital admission criteria - no hypoxia, cxr findings, severe inflammatory marker elevations - Due to patients comorbid copd, asthma, dm2 as well as her advanced age put her at increased risk for poor outcome to COVID19 infection - Will give monoclonal ab infusion as outpatient - Risks and benefits of mab infusion discussed with patient who voiced understanding - consent form was signed - Will order medications to be on hand should infusion reaction occur - Patient may have regular diet during infusion if she wishes to eat - Tylenol for fevers should they arise - Pending no complications or reaction to infusion, patient may go home after observation period]. Home Medications Scheduled Aspirin (Aspirin EC) 81 Mg Tab, 81 MG PO QHS Canagliflozin (Invokana) 300 Mg Tab, 150 MG PO DAILY Cinnamon Bark (Cinnamon) 500 Mg Tab, 1,000 MG PO TID Garlic (Garlic Oil) 2 Mg Cap, 1,000 MG PO QHS Insulin Glargine,Hum.rec.anlog (Toumallory Solostar) 300 Unit/1 Ml Insuln.pen, 56 UNIT SC DAILY Loratadine (Loratadine) 10 Mg Tablet, 10 MG PO DAILY for allergy symptoms Magnesium Oxide (Magnesium Oxide) 500 Mg Tablet, 500 MG PO DAILY Memantine HCl (Memantine HCl) 10 Mg Tablet, 10 MG PO DAILY Metformin HCl (Metformin HCl) 500 Mg Tab, 1,000 MG PO BID Montelukast Sodium (Montelukast Sodium) 10 Mg Tab, 10 MG PO QHS Multivitamins (Multivitamin Adults) 1 Tab Tab, 1 TAB PO DAILY Neomycin/Polymyxin B/Dexametha (Maxitrol Eye Ointment) 1 Oin Oin, 1 APLCT OU BID APPLY TO EYES QAM AND QHS Prednisone (Prednisone) 10 Mg Tablet, 10 MG PO ASDIRECTED 4 po day 1-3; 3 po day 4-5; 2 po day 6-7; 1 po day 8-9 Turm/Ging/Yves/Yuc/Oli/Echo/Hor (Tumersaid Tablet) 1 Each Tablet, 1 TAB PO DAILY Valsartan (Valsartan) 160 Mg Tablet, 160 MG PO DAILY Vitamin D (Vitamin D) 1,000 Unit Cap, 1,000 UNIT PO DAILY [Cataplex] , 1 TAB DAILY for CHIROPRACTOR PRESCRIBED OTC Scheduled PRN Albuterol Sulfate (Ventolin Hfa) 108 Mcg/Act Aer, 2 PUFF INH Q4H PRN for SHORTNESS OF BREATH Allergies Coded Allergies: sulfamethoxazole (Verified Allergy, Intermediate, PETECHIAL RASH/HX ALEXSANDER, 11/09/20) trimethoprim (Verified Allergy, Intermediate, PETECHIAL RASH/HX ALEXSANDER, 11/09/20) cefazolin (Verified Allergy, Mild, RASH, 11/09/20) latex (Verified Allergy, Mild, RASH, 11/09/20) SEAFOOD (Verified Allergy, Unknown, 04/03/18) cefprozil (Verified Allergy, Unknown, 11/09/20) doxycycline (Verified Allergy, Unknown, 11/09/20) metronidazole (Verified Allergy, Unknown, 11/09/20) metformin (Verified Adverse Reaction, Intermediate, HX OF LACTIACIDOSIS IN THE SETTING OF ALEXSANDER, 11/09/20) PT CURRENTLY ON MEDICATION. A-FIB/CHADSVASC A-FIB History Current/History of A-Fib/PAF?: No MCKILLOP,CIERA D PA Nov 10, 2020 03:35
[~2020-11-10 08:06] MED LIST changes: +ACETAMINOPHEN TAB 650MG DOSE (2X325MG) PO PRN; +ALBUTEROL 90 MCG/ACT 8GM HFA INHALER INH PRN; +ALBUTEROL SULFATE 2.5 MG/0.5 ML INH NEB SOLN INH PRN; +CATAPLEX; +EPINEPHrine INJ 1 MG/ML 1ML AMP IM PRN; +LORA10TA3 PO; +MAGN500T12 PO; +MEMA10TA19 PO; +NS 1,000 ML IV SCH; +PRED10TA2 PO; +TOUJ1.2I SC; +TUMETAB PO; +VALS1TAB67 PO; +diphenhydrAMINE 50MG/ML VIAL (J1200) IV PRN; +methylPREDNISolone 125MG 2ML VIAL IV PRN
[2020-11-10 08:47] VITALS: BP 146/85
[2020-11-10 10:29] VITALS: BP 158/87
[2020-11-10] MEDS ORDERED: CASIRIVIMAB/IMDEVIMAB 1,200 MG in NS 250 ML IV ONE (10:30)
[2020-11-10 11:00] VITALS: BP 151/79
[2020-11-10 11:35] VITALS: BP 150/84
[2020-11-10 12:36] VITALS: BP 159/96
== END 2020-11-10 12:48 | disposition home or self-care (01) ==
LOC: M OPCLI4 08:06 → M 4MAIN 08:26 → M OPCLI4 12:48
PROVIDERS: ATTEND Family Medicine
DX: U07.1 COVID-19 (principal); Z88.1 Allergy status to other antibiotic agents; Z88.8 Allergy status to other drugs, medicaments and biological substances; Z91.013 Allergy to seafood
CPT/HCPCS: 96361; M0243

== ENCOUNTER → 2020-12-25 | Outpatient (CLI) | payer OTHER ==
[~2020-12-25] MED LIST changes: -ACETAMINOPHEN TAB 650MG DOSE (2X325MG) PO PRN; -ALBUTEROL 90 MCG/ACT 8GM HFA INHALER INH PRN; -ALBUTEROL SULFATE 2.5 MG/0.5 ML INH NEB SOLN INH PRN; -EPINEPHrine INJ 1 MG/ML 1ML AMP IM PRN; -NS 1,000 ML IV SCH; -diphenhydrAMINE 50MG/ML VIAL (J1200) IV PRN; -methylPREDNISolone 125MG 2ML VIAL IV PRN
[2020-12-25 13:30] LABS: BASO % 0.6 % (0.0-1.0); EOS # 0.2 10^3/uL (0.0-0.5); EOS % 2.9 % (0.0-3.0); HEMATOCRIT 36.7 % (36.0-47.0); HEMOGLOBIN 12.3 g/dl (12.0-15.5); LYMPH # 1.7 10^3/uL (1.5-5.0); MEAN CORPUSCULAR HEMOGLOBIN 31.3 pg (27.0-33.0); MEAN CORPUSCULAR HGB CONC 33.5 g/dl (32.0-36.5); MEAN CORPUSCULAR VOLUME 93.4 fl (80.0-96.0); MONO # 0.9 10^3/uL (0.0-0.8); MONO % 11.9 % (2.0-8.0); NEUTROPHILS # 4.3 10^3/uL (1.5-8.5); PLATELET COUNT, AUTOMATED 275 10^3/uL (150-450); RED BLOOD COUNT 3.93 10^6/uL (4.00-5.40); WHITE BLOOD COUNT 7.2 10^3/uL (4.0-10.0)
[2020-12-25 13:51] LABS: HEMOGLOBIN A1c 7.5 %
[2020-12-25 13:58] LABS: ALBUMIN 3.5 GM/DL (3.2-5.2); ALT/SGPT 18 U/L (12-78); BILIRUBIN,TOTAL 0.7 MG/DL (0.2-1.0); BLOOD UREA NITROGEN 9 MG/DL (7-18); CALCIUM LEVEL 9.5 MG/DL (8.8-10.2); CARBON DIOXIDE LEVEL 28 MEQ/L (21-32); CHLORIDE LEVEL 107 MEQ/L (98-107); CHOLESTEROL LEVEL 186 MG/DL (<200); CHOLESTEROL RISK RATIO 3.576 (<5); CREATININE FOR GFR 0.59 MG/DL (0.55-1.30); GLOMERULAR FILTRATION RATE > 60.0 (>39); GLUCOSE, FASTING 177 MG/DL (70-100); HDL CHOLESTEROL 52 MG/DL (>40); LDL CHOLESTEROL 110 MG/DL (<100); NON-HDL-C 134 MG/DL; POTASSIUM SERUM 4.4 MEQ/L (3.5-5.1); SODIUM LEVEL 141 MEQ/L (136-145); TOTAL PROTEIN 6.8 GM/DL (6.4-8.2); TRIGLYCERIDES LEVEL 120 MG/DL (<150)
[2020-12-25 14:08] LABS: CREATININE, URINE 99.7 MG/DL; MALB URINE SIEMENS 45.7 MG/L; MAU/CREAT RATIO 45.8 MCG/MG (0.0-30.0)
== END ==
LOC: M PLALAB 09:21
PROVIDERS: ATTEND Family Medicine
DX: E11.65 Type 2 diabetes mellitus with hyperglycemia (principal)

== ENCOUNTER → 2021-03-15 | Outpatient (CLI) | payer OTHER ==
[~2021-03-15] MED LIST changes: +LOSA50TA28 PO; -LOSA50TA88 PO; -MONT10TA10 PO; +MONT10TA97 PO
== END ==
LOC: M WHC 10:53
PROVIDERS: ATTEND Family Medicine
DX: Z12.31 Encounter for screening mammogram for malignant neoplasm of breast (principal)

== ENCOUNTER → 2021-04-02 | Outpatient (CLI) | payer OTHER ==
[2021-04-02 10:38] LABS: BASO % 0.6 % (0.0-1.0); EOS # 0.1 10^3/uL (0.0-0.5); EOS % 1.5 % (0.0-3.0); HEMATOCRIT 37.7 % (36.0-47.0); HEMOGLOBIN 12.9 g/dl (12.0-15.5); LYMPH # 1.8 10^3/uL (1.5-5.0); LYMPH % 27.2 % (24.0-44.0); MEAN CORPUSCULAR HEMOGLOBIN 30.9 pg (27.0-33.0); MEAN CORPUSCULAR HGB CONC 34.2 g/dl (32.0-36.5); MEAN CORPUSCULAR VOLUME 90.4 fl (80.0-96.0); MONO # 0.9 10^3/uL (0.0-0.8); MONO % 12.7 % (2.0-8.0); NEUTROPHILS # 3.9 10^3/uL (1.5-8.5); NEUTROPHILS % 57.6 % (36.0-66.0); PLATELET COUNT, AUTOMATED 307 10^3/uL (150-450); RED BLOOD COUNT 4.17 10^6/uL (4.00-5.40); WHITE BLOOD COUNT 6.8 10^3/uL (4.0-10.0)
[2021-04-02 10:59] LABS: HEMOGLOBIN A1c 7.5 %
[2021-04-02 11:08] LABS: ALBUMIN 3.7 GM/DL (3.2-5.2); ALT/SGPT 20 U/L (12-78); BILIRUBIN,TOTAL 0.7 MG/DL (0.2-1.0); BLOOD UREA NITROGEN 10 MG/DL (7-18); CALCIUM LEVEL 9.6 MG/DL (8.8-10.2); CARBON DIOXIDE LEVEL 28 MEQ/L (21-32); CHLORIDE LEVEL 104 MEQ/L (98-107); CREATININE FOR GFR 0.72 MG/DL (0.55-1.30); GLOMERULAR FILTRATION RATE > 60.0 (>39); GLUCOSE, FASTING 202 MG/DL (70-100); POTASSIUM SERUM 4.6 MEQ/L (3.5-5.1); SODIUM LEVEL 141 MEQ/L (136-145)
== END ==
LOC: M PLALAB 08:15
PROVIDERS: ATTEND Family Medicine
DX: E11.65 Type 2 diabetes mellitus with hyperglycemia (principal)

== ENCOUNTER → 2021-07-02 | Outpatient (CLI) | payer OTHER ==
[2021-07-02 13:51] LABS: BASO # 0.1 10^3/uL (0.0-0.2); BASO % 0.8 % (0.0-1.0); EOS # 0.2 10^3/uL (0.0-0.5); EOS % 2.7 % (0.0-3.0); HEMATOCRIT 38.9 % (36.0-47.0); HEMOGLOBIN 13.4 g/dl (12.0-15.5); LYMPH % 33.6 % (24.0-44.0); MEAN CORPUSCULAR HEMOGLOBIN 31.7 pg (27.0-33.0); MEAN CORPUSCULAR HGB CONC 34.4 g/dl (32.0-36.5); MONO # 0.8 10^3/uL (0.0-0.8); MONO % 13.9 % (2.0-8.0); NEUTROPHILS # 2.9 10^3/uL (1.5-8.5); NEUTROPHILS % 48.5 % (36.0-66.0); PLATELET COUNT, AUTOMATED 277 10^3/uL (150-450); RED BLOOD COUNT 4.23 10^6/uL (4.00-5.40)
[2021-07-02 14:20] LABS: ALBUMIN 3.6 GM/DL (3.2-5.2); ALT/SGPT 24 U/L (12-78); BILIRUBIN,TOTAL 0.8 MG/DL (0.2-1.0); BLOOD UREA NITROGEN 9 MG/DL (7-18); CALCIUM LEVEL 9.7 MG/DL (8.8-10.2); CARBON DIOXIDE LEVEL 29 MEQ/L (21-32); CHLORIDE LEVEL 105 MEQ/L (98-107); CHOLESTEROL LEVEL 206 MG/DL (<200); CREATININE FOR GFR 0.62 MG/DL (0.55-1.30); FREE T4 1.11 NG/DL (0.76-1.46); GLOMERULAR FILTRATION RATE > 60.0 (>39); GLUCOSE, FASTING 223 MG/DL (70-100); HDL CHOLESTEROL 43 MG/DL (>40); HEMOGLOBIN A1c 8.7 %; LDL CHOLESTEROL 112 MG/DL (<100); NON-HDL-C 163 MG/DL; POTASSIUM SERUM 4.2 MEQ/L (3.5-5.1); SODIUM LEVEL 141 MEQ/L (136-145); TOTAL PROTEIN 6.8 GM/DL (6.4-8.2); TRIGLYCERIDES LEVEL 256 MG/DL (<150)
== END ==
LOC: M PLALAB 08:54
PROVIDERS: ATTEND Family Medicine
DX: E11.65 Type 2 diabetes mellitus with hyperglycemia (principal); E78.1 Pure hyperglyceridemia

== ENCOUNTER → 2021-10-10 | Outpatient (CLI) | payer OTHER ==
[2021-10-10 13:19] LABS: BASO % 0.5 % (0.0-1.0); EOS # 0.2 10^3/uL (0.0-0.5); EOS % 2.9 % (0.0-3.0); HEMATOCRIT 37.1 % (36.0-47.0); HEMOGLOBIN 12.5 g/dl (12.0-15.5); LYMPH # 1.8 10^3/uL (1.5-5.0); LYMPH % 32.4 % (24.0-44.0); MEAN CORPUSCULAR HEMOGLOBIN 31.3 pg (27.0-33.0); MEAN CORPUSCULAR HGB CONC 33.7 g/dl (32.0-36.5); MEAN CORPUSCULAR VOLUME 92.8 fl (80.0-96.0); MONO # 0.8 10^3/uL (0.0-0.8); NEUTROPHILS # 2.8 10^3/uL (1.5-8.5); NEUTROPHILS % 49.5 % (36.0-66.0); PLATELET COUNT, AUTOMATED 289 10^3/uL (150-450); WHITE BLOOD COUNT 5.6 10^3/uL (4.0-10.0)
[2021-10-10 14:09] LABS: ALBUMIN 3.5 GM/DL (3.2-5.2); ALT/SGPT 19 U/L (12-78); BILIRUBIN,TOTAL 0.7 MG/DL (0.2-1.0); BLOOD UREA NITROGEN 9 MG/DL (7-18); CALCIUM LEVEL 8.6 MG/DL (8.8-10.2); CARBON DIOXIDE LEVEL 28 MEQ/L (21-32); CHLORIDE LEVEL 105 MEQ/L (98-107); CHOLESTEROL LEVEL 164 MG/DL (<200); CREATININE FOR GFR 0.61 MG/DL (0.55-1.30); GLOMERULAR FILTRATION RATE > 60.0 (>39); GLUCOSE, FASTING 148 MG/DL (70-100); HDL CHOLESTEROL 50 MG/DL (>40); LDL CHOLESTEROL 81 MG/DL (<100); NON-HDL-C 114 MG/DL; POTASSIUM SERUM 4.2 MEQ/L (3.5-5.1); SODIUM LEVEL 139 MEQ/L (136-145); TOTAL PROTEIN 6.9 GM/DL (6.4-8.2); TRIGLYCERIDES LEVEL 164 MG/DL (<150)
[2021-10-10 14:47] LABS: HEMOGLOBIN A1c 6.8 %
== END ==
LOC: M PLALAB 08:57
PROVIDERS: ATTEND Nurse Practitioner Adult Health
DX: E11.65 Type 2 diabetes mellitus with hyperglycemia (principal)

== ENCOUNTER → 2022-01-17 | Outpatient (CLI) | payer OTHER ==
[~2022-01-17] MED LIST changes: +[UNRECOGNIZED DRUG - CODE] PO; -[UNRECOGNIZED DRUG - CODE] PO
[2022-01-17 11:09] LABS: BASO % 0.6 % (0.0-1.0); EOS # 0.2 10^3/uL (0.0-0.5); EOS % 2.9 % (0.0-3.0); HEMATOCRIT 37.8 % (36.0-47.0); HEMOGLOBIN 12.8 g/dl (12.0-15.5); LYMPH # 2.1 10^3/uL (1.5-5.0); LYMPH % 32.8 % (24.0-44.0); MEAN CORPUSCULAR HGB CONC 33.9 g/dl (32.0-36.5); MEAN CORPUSCULAR VOLUME 91.5 fl (80.0-96.0); MONO # 0.9 10^3/uL (0.0-0.8); MONO % 14.4 % (2.0-8.0); NEUTROPHILS # 3.1 10^3/uL (1.5-8.5); NEUTROPHILS % 48.8 % (36.0-66.0); PLATELET COUNT, AUTOMATED 293 10^3/uL (150-450); RED BLOOD COUNT 4.13 10^6/uL (4.00-5.40); WHITE BLOOD COUNT 6.3 10^3/uL (4.0-10.0)
[2022-01-17 11:24] LABS: CREATININE, URINE 87.7 MG/DL; MAU/CREAT RATIO 29.6 MCG/MG (0.0-30.0)
[2022-01-17 11:26] LABS: ALBUMIN 3.7 G/DL (3.2-5.2); ALKALINE PHOSPHATASE 46 U/L (46-116); ALT/SGPT 19 U/L (7.0-40); AST/SGOT 20 U/L (<34); BILIRUBIN,TOTAL 0.6 MG/DL (0.3-1.2); BLOOD UREA NITROGEN 11 MG/DL (9-23); CALCIUM LEVEL 9.3 MG/DL (8.3-10.6); CARBON DIOXIDE LEVEL 29 MMOL/L (20-31); CHLORIDE LEVEL 106 MMOL/L (98-107); CHOLESTEROL LEVEL 143 MG/DL (<200); CHOLESTEROL RISK RATIO 2.98 (<5); CREATININE FOR GFR 0.52 MG/DL (0.55-1.30); GLOMERULAR FILTRATION RATE > 60.0 (>39); GLUCOSE, FASTING 116 MG/DL (74-106); HDL CHOLESTEROL 47.9 MG/DL (>40); LDL CHOLESTEROL 69.3 MG/DL (<100); NON-HDL-C 95 MG/DL; POTASSIUM SERUM 4.5 MMOL/L (3.5-5.1); SODIUM LEVEL 140 MMOL/L (136-145); TOTAL PROTEIN 6.5 G/DL (5.7-8.2); TRIGLYCERIDES LEVEL 129 MG/DL (<150)
[2022-01-17 11:27] LABS: TOTAL 25(OH) VITAMIN D 27.4 NG/ML (20.0-100.0)
[2022-01-17 11:28] LABS: FREE T4 1.25 NG/DL (0.89-1.76); THYROID STIMULATING HORMONE 1.339 uIU/ML (0.55-4.78)
[2022-01-17 12:57] LABS: HEMOGLOBIN A1c 6.6 % (4.0-6.0)
== END ==
LOC: M PLALAB 09:01
PROVIDERS: ATTEND Nurse Practitioner Adult Health
DX: E11.65 Type 2 diabetes mellitus with hyperglycemia (principal); Z79.899 Other long term (current) drug therapy

== ENCOUNTER → 2022-05-14 | Outpatient (CLI) | payer OTHER ==
[2022-05-14 16:09] LABS: BASO % 0.6 % (0.0-1.0); EOS # 0.1 10^3/uL (0.0-0.5); EOS % 1.4 % (0.0-3.0); HEMATOCRIT 37.8 % (36.0-47.0); HEMOGLOBIN 12.7 g/dl (12.0-15.5); LYMPH # 2.4 10^3/uL (1.5-5.0); LYMPH % 36.6 % (24.0-44.0); MEAN CORPUSCULAR HEMOGLOBIN 31.7 pg (27.0-33.0); MEAN CORPUSCULAR HGB CONC 33.6 g/dl (32.0-36.5); MEAN CORPUSCULAR VOLUME 94.3 fl (80.0-96.0); MONO # 0.9 10^3/uL (0.0-0.8); MONO % 13.4 % (2.0-8.0); NEUTROPHILS # 3.1 10^3/uL (1.5-8.5); NEUTROPHILS % 47.5 % (36.0-66.0); PLATELET COUNT, AUTOMATED 341 10^3/uL (150-450); RED BLOOD COUNT 4.01 10^6/uL (4.00-5.40); WHITE BLOOD COUNT 6.4 10^3/uL (4.0-10.0)
[2022-05-14 16:52] LABS: HEMOGLOBIN A1c 7.3 % (4.0-6.0)
[2022-05-14 17:21] LABS: ALBUMIN 3.7 G/DL (3.2-5.2); ALKALINE PHOSPHATASE 48 U/L (46-116); ALT/SGPT 22 U/L (7.0-40); AST/SGOT 20 U/L (<34); BILIRUBIN,TOTAL 0.6 MG/DL (0.3-1.2); BLOOD UREA NITROGEN 8 MG/DL (9-23); CALCIUM LEVEL 8.9 MG/DL (8.3-10.6); CARBON DIOXIDE LEVEL 28 MMOL/L (20-31); CHLORIDE LEVEL 105 MMOL/L (98-107); CHOLESTEROL LEVEL 153 MG/DL (<200); CHOLESTEROL RISK RATIO 2.68 (<5); CREATININE FOR GFR 0.49 MG/DL (0.55-1.30); GLOMERULAR FILTRATION RATE > 60.0 (>39); GLUCOSE, FASTING 161 MG/DL (74-106); LDL CHOLESTEROL 72.6 MG/DL (<100); POTASSIUM SERUM 3.9 MMOL/L (3.5-5.1); SODIUM LEVEL 140 MMOL/L (136-145); TOTAL PROTEIN 6.4 G/DL (5.7-8.2); TRIGLYCERIDES LEVEL 117 MG/DL (<150)
== END ==
LOC: M WUC 09:07
PROVIDERS: ATTEND Family Medicine
DX: E11.65 Type 2 diabetes mellitus with hyperglycemia (principal); I10 Essential (primary) hypertension

== ENCOUNTER → 2022-06-27 | Outpatient (CLI) | payer MEDICARE ==
[2022-06-27 13:09] LABS: BASO % 0.7 % (0.0-1.0); EOS # 0.1 10^3/uL (0.0-0.5); EOS % 1.8 % (0.0-3.0); HEMATOCRIT 36.3 % (36.0-47.0); HEMOGLOBIN 12.2 g/dl (12.0-15.5); LYMPH # 2.1 10^3/uL (1.5-5.0); LYMPH % 36.4 % (24.0-44.0); MEAN CORPUSCULAR HEMOGLOBIN 31.3 pg (27.0-33.0); MEAN CORPUSCULAR HGB CONC 33.6 g/dl (32.0-36.5); MEAN CORPUSCULAR VOLUME 93.1 fl (80.0-96.0); MONO # 0.7 10^3/uL (0.0-0.8); MONO % 11.8 % (2.0-8.0); NEUTROPHILS # 2.8 10^3/uL (1.5-8.5); NEUTROPHILS % 48.8 % (36.0-66.0); PLATELET COUNT, AUTOMATED 327 10^3/uL (150-450); WHITE BLOOD COUNT 5.7 10^3/uL (4.0-10.0)
[2022-06-27 13:28] LABS: HEMOGLOBIN A1c 7.6 % (4.0-6.0)
[2022-06-27 13:44] LABS: ALBUMIN 3.5 G/DL (3.2-5.2); ALKALINE PHOSPHATASE 54 U/L (46-116); ALT/SGPT 21 U/L (7.0-40); AST/SGOT 24 U/L (<34); BILIRUBIN,TOTAL 0.5 MG/DL (0.3-1.2); BLOOD UREA NITROGEN 9 MG/DL (9-23); CALCIUM LEVEL 9.3 MG/DL (8.3-10.6); CARBON DIOXIDE LEVEL 28 MMOL/L (20-31); CHLORIDE LEVEL 103 MMOL/L (98-107); CREATININE FOR GFR 0.54 MG/DL (0.55-1.30); GLOMERULAR FILTRATION RATE > 60.0 (>39); GLUCOSE, FASTING 176 MG/DL (74-106); POTASSIUM SERUM 4.7 MMOL/L (3.5-5.1); SODIUM LEVEL 138 MMOL/L (136-145); TOTAL PROTEIN 6.3 G/DL (5.7-8.2)
== END ==
LOC: M WUC 09:28
PROVIDERS: ATTEND Nurse Practitioner Adult Health
DX: E11.65 Type 2 diabetes mellitus with hyperglycemia (principal)

== ENCOUNTER → 2022-09-26 | Outpatient (CLI) | payer MEDICARE ==
[2022-09-26 13:01] LABS: BASO % 0.6 % (0.0-1.0); EOS # 0.1 10^3/uL (0.0-0.5); EOS % 1.6 % (0.0-3.0); HEMATOCRIT 38.7 % (36.0-47.0); HEMOGLOBIN 12.9 g/dl (12.0-15.5); LYMPH # 2.5 10^3/uL (1.5-5.0); LYMPH % 37.5 % (24.0-44.0); MEAN CORPUSCULAR HEMOGLOBIN 30.8 pg (27.0-33.0); MEAN CORPUSCULAR HGB CONC 33.3 g/dl (32.0-36.5); MEAN CORPUSCULAR VOLUME 92.4 fl (80.0-96.0); MONO # 0.9 10^3/uL (0.0-0.8); MONO % 13.5 % (2.0-8.0); NEUTROPHILS # 3.1 10^3/uL (1.5-8.5); NEUTROPHILS % 46.4 % (36.0-66.0); PLATELET COUNT, AUTOMATED 332 10^3/uL (150-450); RED BLOOD COUNT 4.19 10^6/uL (4.00-5.40); WHITE BLOOD COUNT 6.7 10^3/uL (4.0-10.0)
[2022-09-26 13:06] LABS: ALBUMIN 3.8 G/DL (3.2-5.2); ALKALINE PHOSPHATASE 58 U/L (46-116); ALT/SGPT 17 U/L (7.0-40); AST/SGOT 17 U/L (<34); BILIRUBIN,TOTAL 0.9 MG/DL (0.3-1.2); BLOOD UREA NITROGEN 11 MG/DL (9-23); CALCIUM LEVEL 8.9 MG/DL (8.3-10.6); CARBON DIOXIDE LEVEL 29 MMOL/L (20-31); CHLORIDE LEVEL 105 MMOL/L (98-107); CHOLESTEROL LEVEL 159 MG/DL (<200); CHOLESTEROL RISK RATIO 3.28 (<5); GLOMERULAR FILTRATION RATE > 60.0 (>39); GLUCOSE, FASTING 125 MG/DL (74-106); HDL CHOLESTEROL 48.4 MG/DL (>40); LDL CHOLESTEROL 69.4 MG/DL (<100); NON-HDL-C 110.6 MG/DL; POTASSIUM SERUM 3.7 MMOL/L (3.5-5.1); SODIUM LEVEL 143 MMOL/L (136-145); TOTAL PROTEIN 6.7 G/DL (5.7-8.2); TRIGLYCERIDES LEVEL 206 MG/DL (<150)
[2022-09-26 13:09] LABS: THYROID STIMULATING HORMONE 2.059 uIU/ML (0.55-4.78)
[2022-09-26 13:10] LABS: FREE T4 1.15 NG/DL (0.89-1.76)
[2022-09-26 13:23] LABS: HEMOGLOBIN A1c 6.7 % (4.0-6.0)
== END ==
LOC: M WUC 09:12
PROVIDERS: ATTEND Nurse Practitioner Adult Health
DX: E11.65 Type 2 diabetes mellitus with hyperglycemia (principal); E78.1 Pure hyperglyceridemia; I10 Essential (primary) hypertension

== ENCOUNTER 2022-10-31 18:38 | Inpatient (IN) | payer MEDICARE ==
[~2022-10-31] VITALS: Ht 162.6 cm; Wt 82.7 kg
[2022-10-31 19:44] LABS: BASO % 0.4 % (0.0-1.0); HEMATOCRIT 34.5 % (36.0-47.0); HEMOGLOBIN 11.7 g/dl (12.0-15.5); LYMPH # 0.5 10^3/uL (1.5-5.0); LYMPH % 6.2 % (24.0-44.0); MEAN CORPUSCULAR HEMOGLOBIN 31.3 pg (27.0-33.0); MEAN CORPUSCULAR HGB CONC 33.9 g/dl (32.0-36.5); MEAN CORPUSCULAR VOLUME 92.2 fl (80.0-96.0); MONO # 1.3 10^3/uL (0.0-0.8); MONO % 16.1 % (2.0-8.0); NEUTROPHILS # 6.3 10^3/uL (1.5-8.5); NEUTROPHILS % 76.3 % (36.0-66.0); PLATELET COUNT, AUTOMATED 248 10^3/uL (150-450); RED BLOOD COUNT 3.74 10^6/uL (4.00-5.40); WHITE BLOOD COUNT 8.3 10^3/uL (4.0-10.0)
[2022-10-31 20:10] LABS: RSV AMPLIFICATION NEGATIVE (NEGATIVE)
[2022-10-31] MEDS ORDERED: NS 1,000 ML IV SCH (20:15)
[2022-10-31 20:16] LABS: ALBUMIN 3.3 G/DL (3.2-5.2); ALKALINE PHOSPHATASE 51 U/L (46-116); ALT/SGPT 21 U/L (7.0-40); AST/SGOT 36 U/L (<34); BILIRUBIN,DIRECT 0.3 MG/DL (<0.4); BILIRUBIN,TOTAL 0.8 MG/DL (0.3-1.2); BLOOD UREA NITROGEN 9 MG/DL (9-23); CALCIUM LEVEL 8.5 MG/DL (8.3-10.6); CARBON DIOXIDE LEVEL 23 MMOL/L (20-31); CHLORIDE LEVEL 104 MMOL/L (98-107); CK-MB VALUE MASS < 1.0 NG/ML (<3.6); GLOMERULAR FILTRATION RATE > 60.0 (>39); GLUCOSE, FASTING 233 MG/DL (74-106); SODIUM LEVEL 138 MMOL/L (136-145); TOTAL PROTEIN 6.1 G/DL (5.7-8.2)
[2022-10-31 20:18] LABS: THYROXINE (T4) 10.3 UG/DL (4.5-10.9)
[2022-10-31 20:19] LABS: CPK CREATINE PHOSPHOKINASE 195 U/L (34-145); MB/CK RELATIVE INDEX 0.51 (< OR =4)
[2022-10-31 20:58] LABS: PROCALCITONIN 0.09 ng/ml
[2022-10-31] MEDS: INSULIN LISPRO (NovoLOG) PER UNIT SC SCH (21:00)
[2022-10-31] MEDS ORDERED: GLUCOSE 4GM CHEW TABLET PO PRN (22:35)
[2022-10-31] MEDS ORDERED: GLUCAGON INJ 1MG VIAL SC PRN (22:35)
[2022-10-31] MEDS: NS 1,000 ML IV SCH (22:35)
[2022-10-31] MEDS ORDERED: DEXTROSE 50% 50ML SYRINGE IV PRN (22:35)
[2022-10-31] MEDS ORDERED: MOM 30ML SUSPENSION UDC PO PRN (22:35)
[2022-10-31] MEDS ORDERED: CINN500C2 PO (23:29)
[2022-10-31] MEDS ORDERED: TRUL0.5I SC (23:29)
[2022-10-31] MEDS ORDERED: RA T500C2 PO (23:29)
[2022-10-31] MEDS ORDERED: MEMA10TA19 PO (23:29)
[2022-10-31] MEDS ORDERED: GARL500C2 PO (23:29)
[2022-10-31] MEDS ORDERED: OCUVTAB8 PO (23:29)
[2022-10-31] MEDS ORDERED: METF-838 PO (23:29)
[2022-10-31] MEDS ORDERED: AMLO1TAB25 PO (23:29)
[2022-10-31] MEDS ORDERED: HOME MED LIST COMPLETE! XX SCH (23:30)
[2022-10-31 23:48] LABS: FERRITIN 67.2 NG/ML (7.3-270.7)
[2022-11-01] VITALS (10 sets, daily range): BP systolic 123–167; BP diastolic 72–86; TEMP 98.1–103; O2SAT 92–97
[2022-11-01] MEDS: ACETAMINOPHEN TAB 650MG DOSE (2X325MG) PO PRN ×4 (02:10→14:38)
[2022-11-01 02:54] LABS: HEMATOCRIT 32.4 % (36.0-47.0); HEMOGLOBIN 11.3 g/dl (12.0-15.5); MEAN CORPUSCULAR HEMOGLOBIN 31.3 pg (27.0-33.0); MEAN CORPUSCULAR HGB CONC 34.9 g/dl (32.0-36.5); MEAN CORPUSCULAR VOLUME 89.8 fl (80.0-96.0); PLATELET COUNT, AUTOMATED 227 10^3/uL (150-450); RED BLOOD COUNT 3.61 10^6/uL (4.00-5.40); WHITE BLOOD COUNT 6.6 10^3/uL (4.0-10.0)
[2022-11-01 03:05] LABS: INR 1.1; PROTHROMBIN TIME 13.9 SECONDS (12.5-14.5)
[2022-11-01 03:06] LABS: PARTIAL THROMBOPLASTIN TIME 29.3 SECONDS (24.8-34.2)
[2022-11-01 03:20] LABS: ALBUMIN 3.3 G/DL (3.2-5.2); ALKALINE PHOSPHATASE 56 U/L (46-116); ALT/SGPT 23 U/L (7.0-40); AST/SGOT 52 U/L (<34); BILIRUBIN,TOTAL 0.7 MG/DL (0.3-1.2); BLOOD UREA NITROGEN 8 MG/DL (9-23); CALCIUM LEVEL 8.2 MG/DL (8.3-10.6); CARBON DIOXIDE LEVEL 25 MMOL/L (20-31); CHLORIDE LEVEL 107 MMOL/L (98-107); CREATININE FOR GFR 0.52 MG/DL (0.55-1.30); GLOMERULAR FILTRATION RATE > 60.0 (>39); GLUCOSE, FASTING 136 MG/DL (74-106); MAGNESIUM LEVEL 1.3 MG/DL (1.8-2.4); POTASSIUM SERUM 3.4 MMOL/L (3.5-5.1); SODIUM LEVEL 140 MMOL/L (136-145); TOTAL PROTEIN 6.2 G/DL (5.7-8.2)
[2022-11-01] MEDS: NS 1,000 ML IV SCH (04:29)
[2022-11-01] MEDS ORDERED: ALBUTEROL 90 MCG/ACT 8GM HFA INHALER INH PRN (04:45)
[2022-11-01] MEDS: MONTELUKAST 10 MG TAB PO SCH ×2 (05:30→21:48)
[2022-11-01] MEDS: LEVEMIR (INSULIN DETEMIR) 1 UNITS/0.01ML SC SCH ×2 (05:30→21:49)
[2022-11-01] MEDS: IPRATROPIUM HFA INHALER 12.9 GRAMS (ATROVENT HFA) INH SCH ×2 (07:56→19:21)
[2022-11-01] MEDS ORDERED: POTASSIUM CHLORIDE 10MEQ SR TABLET PO ONE (09:00)
[2022-11-01] MEDS: INSULIN LISPRO (NovoLOG) PER UNIT SC SCH ×4 (09:16→21:00)
[2022-11-01] MEDS: ENOXAPARIN 40MG/0.4ML SYRINGE (J1650 PER 10MG) SC SCH (09:17)
[2022-11-01] MEDS: guaiFENesin ER 600 MG TAB PO SCH ×2 (09:18→21:48)
[2022-11-01] MEDS: MEMANTINE 5MG TABLET (NAMENDA) PO SCH (09:20)
[2022-11-01] MEDS: MAG SULF 1GM/100ML (MAG RUN) 100 ML IV SCH ×2 (09:23→10:02)
[2022-11-01] MEDS: OCUVITE 1 TAB PO SCH (11:28)
[2022-11-01] MEDS: MAG SULF 1GM/100ML (MAG RUN) 1 GM in IV 1 EA IV SCH ×2 (11:28→12:48)
[2022-11-01] MEDS ORDERED: REMDESIVIR 200 MG in NS 250 ML IV ONE (12:00)
[2022-11-01] MEDS ORDERED: ASPIRIN 81MG ENTERIC TABLET PO SCH (21:00)
[2022-11-01] MEDS ORDERED: ACETAMINOPHEN 500 MG TAB PO ONE (23:00)
[2022-11-02 04:35] VITALS: TEMP 100.3; O2SAT 98
[2022-11-02 05:56] LABS: ALBUMIN 3.1 G/DL (3.2-5.2); ALKALINE PHOSPHATASE 71 U/L (46-116); ALT/SGPT 34 U/L (7.0-40); AST/SGOT 87 U/L (<34); BILIRUBIN,DIRECT 0.3 MG/DL (<0.4); BILIRUBIN,TOTAL 0.5 MG/DL (0.3-1.2); BLOOD UREA NITROGEN 8 MG/DL (9-23); CALCIUM LEVEL 7.8 MG/DL (8.3-10.6); CARBON DIOXIDE LEVEL 27 MMOL/L (20-31); CHLORIDE LEVEL 106 MMOL/L (98-107); CREATININE FOR GFR 0.62 MG/DL (0.55-1.30); GLOMERULAR FILTRATION RATE > 60.0 (>39); GLUCOSE, FASTING 120 MG/DL (74-106); MAGNESIUM LEVEL 1.9 MG/DL (1.8-2.4); POTASSIUM SERUM 3.6 MMOL/L (3.5-5.1); SODIUM LEVEL 140 MMOL/L (136-145)
[2022-11-02 06:00] LABS: HEMATOCRIT 34.3 % (36.0-47.0); HEMOGLOBIN 11.7 g/dl (12.0-15.5); MEAN CORPUSCULAR HEMOGLOBIN 31.5 pg (27.0-33.0); MEAN CORPUSCULAR HGB CONC 34.1 g/dl (32.0-36.5); MEAN CORPUSCULAR VOLUME 92.5 fl (80.0-96.0); PLATELET COUNT, AUTOMATED 200 10^3/uL (150-450); RED BLOOD COUNT 3.71 10^6/uL (4.00-5.40); WHITE BLOOD COUNT 3.9 10^3/uL (4.0-10.0)
[2022-11-02 07:01] LABS: ATYPICAL LYMPH 1 % (0-5); BASOPHILS 2 % (0-1); EOSINOPHILS 1 % (0-3); LYMPHOCYTES 31 % (16-44); MONOCYTES 17 % (0-5); NEUTROPHILS 47 % (28-66); PLATELET ESTIMATE NORMAL (NORMAL)
[2022-11-02 07:02] LABS: ANISOCYTOSIS 1+; MICROCYTOSIS 1+
[2022-11-02] MEDS: IPRATROPIUM HFA INHALER 12.9 GRAMS (ATROVENT HFA) INH SCH (07:33)
[2022-11-02] MEDS: ENOXAPARIN 40MG/0.4ML SYRINGE (J1650 PER 10MG) SC SCH (08:45)
[2022-11-02] MEDS: OCUVITE 1 TAB PO SCH (08:45)
[2022-11-02] MEDS: INSULIN LISPRO (NovoLOG) PER UNIT SC SCH ×2 (08:45→11:46)
[2022-11-02] MEDS: MEMANTINE 5MG TABLET (NAMENDA) PO SCH (08:46)
[2022-11-02] MEDS: guaiFENesin ER 600 MG TAB PO SCH (08:46)
[2022-11-02 08:49] VITALS: BP 118/70
[2022-11-02] MEDS ORDERED: TOUJ1.2I SC (10:09)
[2022-11-02] MEDS: ACETAMINOPHEN TAB 650MG DOSE (2X325MG) PO PRN (11:55)
[2022-11-02] MEDS ORDERED: REMDESIVIR 100 MG in NS 250 ML IV SCH (12:00)
== END 2022-11-02 16:52 | disposition home health service (06) | DRG 178 ==
LOC: M ED 18:38 → M ED INP 22:33 → M PCU 11-01 01:59
PROVIDERS: ADMIT Internal Medicine; ATTEND Internal Medicine
DX: U07.1 COVID-19 (principal); E87.20 Acidosis, unspecified; J44.9 Chronic obstructive pulmonary disease, unspecified; J45.909 Unspecified asthma, uncomplicated; E86.0 Dehydration; I10 Essential (primary) hypertension; R53.1 Weakness; F03.90 Unspecified dementia, unspecified severity, without behavioral disturbance, psychotic disturbance, mood disturbance, and anxiety; E11.9 Type 2 diabetes mellitus without complications; E83.42 Hypomagnesemia; Z28.310 Unvaccinated for COVID-19; Z90.49 Acquired absence of other specified parts of digestive tract; Z79.84 Long term (current) use of oral hypoglycemic drugs; Z79.82 Long term (current) use of aspirin; Z79.899 Other long term (current) drug therapy; Z88.1 Allergy status to other antibiotic agents; Z88.2 Allergy status to sulfonamides; Z88.8 Allergy status to other drugs, medicaments and biological substances; Z91.013 Allergy to seafood

== ENCOUNTER → 2023-01-01 | Outpatient (CLI) | payer MEDICARE ==
[~2023-01-01] MED LIST changes: +AMLO1TAB25 PO; +CINN500C2 PO; +GARL500C2 PO; +METF-838 PO; +OCUVTAB8 PO; +RA T500C2 PO; +TRUL0.5I SC
[2023-01-01 11:48] LABS: BASO % 0.6 % (0.0-1.0); EOS # 0.2 10^3/uL (0.0-0.5); EOS % 2.9 % (0.0-3.0); HEMATOCRIT 38.2 % (36.0-47.0); LYMPH # 2.3 10^3/uL (1.5-5.0); LYMPH % 32.8 % (24.0-44.0); MEAN CORPUSCULAR HEMOGLOBIN 31.6 pg (27.0-33.0); MEAN CORPUSCULAR VOLUME 92.7 fl (80.0-96.0); MONO # 0.9 10^3/uL (0.0-0.8); MONO % 13.2 % (2.0-8.0); NEUTROPHILS # 3.5 10^3/uL (1.5-8.5); NEUTROPHILS % 50.2 % (36.0-66.0); PLATELET COUNT, AUTOMATED 320 10^3/uL (150-450); RED BLOOD COUNT 4.12 10^6/uL (4.00-5.40); WHITE BLOOD COUNT 6.9 10^3/uL (4.0-10.0)
[2023-01-01 12:09] LABS: HEMOGLOBIN A1c 7.3 % (4.0-6.0)
[2023-01-01 12:13] LABS: CREATININE, URINE 102.3 MG/DL
[2023-01-01 12:14] LABS: MAU/CREAT RATIO 9.7 MCG/MG (0.0-30.0)
[2023-01-01 12:15] LABS: ALBUMIN 3.6 G/DL (3.2-5.2); ALKALINE PHOSPHATASE 52 U/L (46-116); ALT/SGPT 18 U/L (7.0-40); AST/SGOT 13 U/L (<34); BILIRUBIN,TOTAL 0.5 MG/DL (0.3-1.2); BLOOD UREA NITROGEN 12 MG/DL (9-23); CALCIUM LEVEL 9.1 MG/DL (8.3-10.6); CARBON DIOXIDE LEVEL 29 MMOL/L (20-31); CHLORIDE LEVEL 101 MMOL/L (98-107); GLOMERULAR FILTRATION RATE > 60.0 (>39); GLUCOSE, FASTING 167 MG/DL (74-106); POTASSIUM SERUM 4.1 MMOL/L (3.5-5.1); SODIUM LEVEL 137 MMOL/L (136-145); TOTAL PROTEIN 6.5 G/DL (5.7-8.2)
== END ==
LOC: M WUC 08:12
PROVIDERS: ATTEND Nurse Practitioner Adult Health
DX: E11.65 Type 2 diabetes mellitus with hyperglycemia (principal)

== ENCOUNTER → 2023-04-07 | Outpatient (CLI) | payer MEDICARE ==
[2023-04-07 13:21] LABS: BASO # 0.1 10^3/uL (0.0-0.2); BASO % 0.8 % (0.0-1.0); EOS # 0.2 10^3/uL (0.0-0.5); EOS % 1.9 % (0.0-3.0); HEMATOCRIT 37.6 % (36.0-47.0); HEMOGLOBIN 12.9 g/dl (12.0-15.5); LYMPH % 37.5 % (24.0-44.0); MEAN CORPUSCULAR HEMOGLOBIN 31.2 pg (27.0-33.0); MEAN CORPUSCULAR HGB CONC 34.3 g/dl (32.0-36.5); MONO % 12.8 % (2.0-8.0); NEUTROPHILS # 3.7 10^3/uL (1.5-8.5); NEUTROPHILS % 46.7 % (36.0-66.0); PLATELET COUNT, AUTOMATED 353 10^3/uL (150-450); RED BLOOD COUNT 4.13 10^6/uL (4.00-5.40)
[2023-04-07 13:48] LABS: ALBUMIN 3.6 G/DL (3.2-5.2); ALKALINE PHOSPHATASE 51 U/L (46-116); ALT/SGPT 15 U/L (7.0-40); AST/SGOT 14 U/L (<34); BILIRUBIN,TOTAL 0.8 MG/DL (0.3-1.2); BLOOD UREA NITROGEN 8 MG/DL (9-23); CARBON DIOXIDE LEVEL 29 MMOL/L (20-31); CHLORIDE LEVEL 105 MMOL/L (98-107); CHOLESTEROL LEVEL 165 MG/DL (<200); CHOLESTEROL RISK RATIO 2.84 (<5); CREATININE FOR GFR 0.57 MG/DL (0.55-1.30); GLOMERULAR FILTRATION RATE > 60.0 (>39); GLUCOSE, FASTING 108 MG/DL (74-106); HDL CHOLESTEROL 57.9 MG/DL (>40); LDL CHOLESTEROL 80.9 MG/DL (<100); NON-HDL-C 107.1 MG/DL; POTASSIUM SERUM 4.1 MMOL/L (3.5-5.1); SODIUM LEVEL 140 MMOL/L (136-145); TOTAL PROTEIN 6.4 G/DL (5.7-8.2); TRIGLYCERIDES LEVEL 131 MG/DL (<150)
[2023-04-07 13:49] LABS: HEMOGLOBIN A1c 6.6 % (4.0-6.0)
== END ==
LOC: M WUC 09:22
PROVIDERS: ATTEND Nurse Practitioner Adult Health
DX: E11.65 Type 2 diabetes mellitus with hyperglycemia (principal); E78.1 Pure hyperglyceridemia

== ENCOUNTER → 2023-07-11 | Outpatient (CLI) | payer MEDICARE ==
[~2023-07-11] MED LIST changes: -GARL500C2 PO; +GARL500C6 PO; +MEMA10TA PO; -MEMA10TA19 PO
[2023-07-11 13:34] LABS: BASO % 0.6 % (0.0-1.0); EOS # 0.2 10^3/uL (0.0-0.5); EOS % 2.2 % (0.0-3.0); HEMATOCRIT 35.5 % (36.0-47.0); HEMOGLOBIN 12.2 g/dl (12.0-15.5); LYMPH # 2.3 10^3/uL (1.5-5.0); MEAN CORPUSCULAR HEMOGLOBIN 31.4 pg (27.0-33.0); MEAN CORPUSCULAR HGB CONC 34.4 g/dl (32.0-36.5); MEAN CORPUSCULAR VOLUME 91.3 fl (80.0-96.0); MONO # 0.9 10^3/uL (0.0-0.8); MONO % 13.2 % (2.0-8.0); NEUTROPHILS # 3.4 10^3/uL (1.5-8.5); NEUTROPHILS % 49.6 % (36.0-66.0); PLATELET COUNT, AUTOMATED 344 10^3/uL (150-450); RED BLOOD COUNT 3.89 10^6/uL (4.00-5.40); WHITE BLOOD COUNT 6.8 10^3/uL (4.0-10.0)
[2023-07-11 13:53] LABS: HEMOGLOBIN A1c 6.3 % (4.0-6.0)
[2023-07-11 14:00] LABS: ALBUMIN 3.4 G/DL (3.2-5.2); ALKALINE PHOSPHATASE 51 U/L (46-116); ALT/SGPT 19 U/L (7.0-40); AST/SGOT 12 U/L (<34); BILIRUBIN,TOTAL 0.7 MG/DL (0.3-1.2); BLOOD UREA NITROGEN 9 MG/DL (9-23); CALCIUM LEVEL 9.1 MG/DL (8.3-10.6); CARBON DIOXIDE LEVEL 31 MMOL/L (20-31); CHLORIDE LEVEL 103 MMOL/L (98-107); CREATININE FOR GFR 0.54 MG/DL (0.55-1.30); GLOMERULAR FILTRATION RATE > 60.0 (>39); GLUCOSE, FASTING 110 MG/DL (74-106); POTASSIUM SERUM 3.7 MMOL/L (3.5-5.1); SODIUM LEVEL 141 MMOL/L (136-145); TOTAL PROTEIN 6.2 G/DL (5.7-8.2)
== END ==
LOC: M WUC 09:21
PROVIDERS: ATTEND Nurse Practitioner Adult Health
DX: E11.65 Type 2 diabetes mellitus with hyperglycemia (principal)

== ENCOUNTER → 2023-10-07 | Outpatient (CLI) | payer MEDICARE ==
[2023-10-07 10:57] LABS: BASO % 0.5 % (0.0-1.0); EOS # 0.1 10^3/uL (0.0-0.5); EOS % 2.2 % (0.0-3.0); HEMATOCRIT 34.7 % (36.0-47.0); HEMOGLOBIN 12.3 g/dl (12.0-15.5); LYMPH # 2.1 10^3/uL (1.5-5.0); LYMPH % 34.7 % (24.0-44.0); MEAN CORPUSCULAR HEMOGLOBIN 32.3 pg (27.0-33.0); MEAN CORPUSCULAR HGB CONC 35.4 g/dl (32.0-36.5); MEAN CORPUSCULAR VOLUME 91.1 fl (80.0-96.0); MONO # 0.9 10^3/uL (0.0-0.8); MONO % 14.7 % (2.0-8.0); NEUTROPHILS # 2.9 10^3/uL (1.5-8.5); NEUTROPHILS % 47.4 % (36.0-66.0); PLATELET COUNT, AUTOMATED 332 10^3/uL (150-450); RED BLOOD COUNT 3.81 10^6/uL (4.00-5.40)
[2023-10-07 11:15] LABS: HEMOGLOBIN A1c 6.3 % (4.0-6.0)
[2023-10-07 11:22] LABS: ALBUMIN 3.7 G/DL (3.2-5.2); ALKALINE PHOSPHATASE 49 U/L (46-116); ALT/SGPT 15 U/L (7.0-40); AST/SGOT 13 U/L (<34); BILIRUBIN,TOTAL 0.8 MG/DL (0.3-1.2); BLOOD UREA NITROGEN 11 MG/DL (9-23); CALCIUM LEVEL 8.8 MG/DL (8.3-10.6); CARBON DIOXIDE LEVEL 30 MMOL/L (20-31); CHLORIDE LEVEL 107 MMOL/L (98-107); CHOLESTEROL LEVEL 166 MG/DL (<200); CHOLESTEROL RISK RATIO 3.07 (<5); CREATININE FOR GFR 0.65 MG/DL (0.55-1.30); GLOMERULAR FILTRATION RATE > 60.0 (>39); GLUCOSE, FASTING 107 MG/DL (74-106); LDL CHOLESTEROL 92.6 MG/DL (<100); POTASSIUM SERUM 3.8 MMOL/L (3.5-5.1); SODIUM LEVEL 141 MMOL/L (136-145); TOTAL PROTEIN 6.5 G/DL (5.7-8.2); TRIGLYCERIDES LEVEL 97 MG/DL (<150)
== END ==
LOC: M LAB 09:46
PROVIDERS: ATTEND Nurse Practitioner Adult Health
DX: E11.65 Type 2 diabetes mellitus with hyperglycemia (principal)

== ENCOUNTER → 2024-04-10 | Outpatient (CLI) | payer MEDICARE ==
[2024-04-10 09:42] LABS: BASO # 0.1 10^3/uL (0.0-0.2); EOS # 0.2 10^3/uL (0.0-0.5); EOS % 3.3 % (0.0-3.0); HEMATOCRIT 34.1 % (36.0-47.0); HEMOGLOBIN 11.8 g/dl (12.0-15.5); LYMPH # 2.1 10^3/uL (1.5-5.0); LYMPH % 30.2 % (24.0-44.0); MEAN CORPUSCULAR HGB CONC 34.6 g/dl (32.0-36.5); MEAN CORPUSCULAR VOLUME 92.4 fl (80.0-96.0); NEUTROPHILS # 3.6 10^3/uL (1.5-8.5); NEUTROPHILS % 51.2 % (36.0-66.0); PLATELET COUNT, AUTOMATED 308 10^3/uL (150-450); RED BLOOD COUNT 3.69 10^6/uL (4.00-5.40)
[2024-04-10 10:05] LABS: CREATININE, URINE 98.2 MG/DL
[2024-04-10 10:06] LABS: MAU/CREAT RATIO 10.1 MCG/MG (0.0-30.0)
[2024-04-10 10:08] LABS: HEMOGLOBIN A1c 5.7 % (4.0-6.0)
[2024-04-10 10:09] LABS: THYROID STIMULATING HORMONE 1.772 uIU/ML (0.55-4.78)
[2024-04-10 10:10] LABS: ALBUMIN 3.5 G/DL (3.2-5.2); ALKALINE PHOSPHATASE 53 U/L (35-104); ALT/SGPT 13 U/L (7.0-40); AST/SGOT 13 U/L (<34); BILIRUBIN,TOTAL 0.6 MG/DL (0.3-1.2); BLOOD UREA NITROGEN 14 MG/DL (9-23); CALCIUM LEVEL 9.3 MG/DL (8.3-10.6); CARBON DIOXIDE LEVEL 27 MMOL/L (20-31); CHLORIDE LEVEL 105 MMOL/L (98-107); CHOLESTEROL LEVEL 171 MG/DL (<200); CHOLESTEROL RISK RATIO 3.19 (<5); CREATININE FOR GFR 0.65 MG/DL (0.55-1.30); FREE T4 1.44 NG/DL (0.89-1.76); GLOMERULAR FILTRATION RATE > 60.0 (>39); GLUCOSE, FASTING 136 MG/DL (74-106); HDL CHOLESTEROL 53.5 MG/DL (>40); LDL CHOLESTEROL 94.7 MG/DL (<100); NON-HDL-C 117.5 MG/DL; SODIUM LEVEL 143 MMOL/L (136-145); TOTAL PROTEIN 6.7 G/DL (5.7-8.2); TRIGLYCERIDES LEVEL 114 MG/DL (<150)
== END ==
LOC: M LAB 08:26
PROVIDERS: ATTEND Nurse Practitioner Adult Health
DX: E11.65 Type 2 diabetes mellitus with hyperglycemia (principal)

== ENCOUNTER 2024-06-03 13:42 | Observation (INO) | payer MEDICARE ==
[~2024-06-03] VITALS: Ht 165.1 cm; Wt 82.1 kg
[2024-06-03] MEDS: ACETAMINOPHEN 325 MG TAB PO ONE (14:16)
[2024-06-03 14:32] LABS: BASO % 0.5 % (0.0-1.0); HEMATOCRIT 35.9 % (36.0-47.0); HEMOGLOBIN 12.5 g/dl (12.0-15.5); LYMPH # 0.9 10^3/uL (1.5-5.0); LYMPH % 10.8 % (24.0-44.0); MEAN CORPUSCULAR HEMOGLOBIN 31.3 pg (27.0-33.0); MEAN CORPUSCULAR HGB CONC 34.8 g/dl (32.0-36.5); MONO # 1.3 10^3/uL (0.0-0.8); MONO % 14.5 % (2.0-8.0); NEUTROPHILS # 6.3 10^3/uL (1.5-8.5); NEUTROPHILS % 73.7 % (36.0-66.0); PLATELET COUNT, AUTOMATED 290 10^3/uL (150-450); RED BLOOD COUNT 3.99 10^6/uL (4.00-5.40); WHITE BLOOD COUNT 8.6 10^3/uL (4.0-10.0)
[2024-06-03 14:44] LABS: INR 1.01; PARTIAL THROMBOPLASTIN TIME 25.9 SECONDS (24.8-34.2); PROTHROMBIN TIME 13.6 SECONDS (12.5-14.5)
[2024-06-03 14:52] LABS: CK-MB VALUE MASS < 1.0 NG/ML (<3.6)
[2024-06-03 14:55] LABS: ALBUMIN 3.8 G/DL (3.2-5.2); ALKALINE PHOSPHATASE 56 U/L (35-104); ALT/SGPT 14 U/L (7.0-40); AST/SGOT 17 U/L (<34); BILIRUBIN,DIRECT 0.3 MG/DL (<0.4); BILIRUBIN,TOTAL 0.8 MG/DL (0.3-1.2); BLOOD UREA NITROGEN 9 MG/DL (9-23); CALCIUM LEVEL 9.4 MG/DL (8.3-10.6); CARBON DIOXIDE LEVEL 25 MMOL/L (20-31); CHLORIDE LEVEL 103 MMOL/L (98-107); CPK CREATINE PHOSPHOKINASE 75 U/L (34-145); CREATININE FOR GFR 0.66 MG/DL (0.55-1.30); GLOMERULAR FILTRATION RATE 89.7 (>39); GLUCOSE, FASTING 155 MG/DL (74-106); MB/CK RELATIVE INDEX 1.33 (< OR =4); POTASSIUM SERUM 3.7 MMOL/L (3.5-5.1); SODIUM LEVEL 137 MMOL/L (136-145)
[2024-06-03 14:57] LABS: FREE T4 1.21 NG/DL (0.89-1.76)
[2024-06-03 14:58] LABS: KETONE, URINE AUTO RFX 1+ mg/dL (NEGATIVE); LEUKOCYTE ESTERASE UR AUTO RFX NEGATIVE (NEGATIVE); MUCUS, URINE RFX MODERATE (NEGATIVE); NITRITE, URINE AUTO RFX NEGATIVE (NEGATIVE); RBC, URINE AUTO RFX 1 /HPF (0-3); SQUAM EPITHELIAL CELL UR AURFX 1 /HPF (0-6); WBC, URINE AUTO RFX 2 /HPF (0-3)
[2024-06-03] MEDS: LevoFLOXacin IV 750 MG in IV 1 EA IV ONE (16:03)
[2024-06-03] MEDS: NS (Normal Saline) 0.9% 1,000 ML IV SCH (16:03)
[2024-06-03 16:08] LABS: CK-MB VALUE MASS < 1.0 NG/ML (<3.6)
[2024-06-03 16:11] LABS: CPK CREATINE PHOSPHOKINASE 73 U/L (34-145); MB/CK RELATIVE INDEX 1.36 (< OR =4)
[2024-06-03] MEDS ORDERED: SEMA1PEN2 SQ (16:48)
[2024-06-03] MEDS ORDERED: TOUJ300I2 INJ (16:48)
[2024-06-03] MEDS ORDERED: HOME MED LIST COMPLETE! XX SCH (16:50)
[2024-06-03] MEDS: INSULIN LISPRO (NovoLOG) PER UNIT SC SCH ×2 (17:30→21:18)
[2024-06-03] MEDS ORDERED: DEXTROSE 50% 50ML SYRINGE IV PRN (17:30)
[2024-06-03] MEDS ORDERED: GLUCOSE 4 GM CHEW PO PRN (17:30)
[2024-06-03] MEDS ORDERED: ALBUTEROL 90 MCG/ACT 8GM HFA INHALER INH PRN (17:30)
[2024-06-03] MEDS ORDERED: GLUCAGON INJ 1MG VIAL SC PRN (17:30)
[2024-06-03] MEDS: MONTELUKAST 10 MG TAB PO SCH (21:53)
[2024-06-03] MEDS: ASPIRIN 81MG ENTERIC TABLET PO SCH (21:53)
[2024-06-03] MEDS: MEMANTINE 5MG TABLET (NAMENDA) PO SCH (21:53)
[2024-06-03] MEDS: REMDESIVIR 200 MG in NS 250 ML IV ONE (21:53)
[2024-06-03] MEDS: ACETAMINOPHEN 325 MG TAB PO PRN (22:21)
[2024-06-04] MEDS: LR 1,000 ML IV SCH (02:04)
[2024-06-04 07:13] LABS: HEMATOCRIT 34.1 % (36.0-47.0); HEMOGLOBIN 11.7 g/dl (12.0-15.5); MEAN CORPUSCULAR HEMOGLOBIN 31.4 pg (27.0-33.0); MEAN CORPUSCULAR HGB CONC 34.3 g/dl (32.0-36.5); MEAN CORPUSCULAR VOLUME 91.4 fl (80.0-96.0); PLATELET COUNT, AUTOMATED 250 10^3/uL (150-450); RED BLOOD COUNT 3.73 10^6/uL (4.00-5.40); WHITE BLOOD COUNT 5.8 10^3/uL (4.0-10.0)
[2024-06-04 07:46] LABS: BLOOD UREA NITROGEN 7 MG/DL (9-23); CALCIUM LEVEL 8.7 MG/DL (8.3-10.6); CARBON DIOXIDE LEVEL 28 MMOL/L (20-31); CHLORIDE LEVEL 105 MMOL/L (98-107); CREATININE FOR GFR 0.64 MG/DL (0.55-1.30); GLOMERULAR FILTRATION RATE > 90.0 (>39); GLUCOSE, FASTING 120 MG/DL (74-106); MAGNESIUM LEVEL 1.3 MG/DL (1.8-2.4); POTASSIUM SERUM 3.6 MMOL/L (3.5-5.1); SODIUM LEVEL 142 MMOL/L (136-145)
[2024-06-04] MEDS: MAG SULF 1GM/100ML (MAG RUN) 1 GM in IV 1 EA IV SCH (09:03)
[2024-06-04] MEDS: ENOXAPARIN 40MG/0.4ML SYRINGE (J1650 PER 10MG) SC SCH (09:03)
[2024-06-04 09:12] LABS: PROCALCITONIN 0.06 ng/ml
[2024-06-04] MEDS: POTASSIUM CHLORIDE 10MEQ SR TABLET PO ONE (12:31)
[2024-06-04 20:20] VITALS: BP 128/74; TEMP 98.4; O2SAT 98
[2024-06-04] MEDS: REMDESIVIR 100 MG in NS 100 ML IV SCH (20:50)
[2024-06-05 04:30] VITALS: BP 124/72; TEMP 98.2; O2SAT 97
[2024-06-05 06:15] LABS: HEMATOCRIT 35.3 % (36.0-47.0); HEMOGLOBIN 12.1 g/dl (12.0-15.5); MEAN CORPUSCULAR HEMOGLOBIN 30.9 pg (27.0-33.0); MEAN CORPUSCULAR HGB CONC 34.3 g/dl (32.0-36.5); MEAN CORPUSCULAR VOLUME 90.3 fl (80.0-96.0); PLATELET COUNT, AUTOMATED 252 10^3/uL (150-450); RED BLOOD COUNT 3.91 10^6/uL (4.00-5.40); WHITE BLOOD COUNT 4.5 10^3/uL (4.0-10.0)
[2024-06-05 06:30] LABS: CALCIUM LEVEL 8.4 MG/DL (8.3-10.6); CREATININE FOR GFR 0.72 MG/DL (0.55-1.30); GLOMERULAR FILTRATION RATE 85.5 (>39); MAGNESIUM LEVEL 1.9 MG/DL (1.8-2.4); POTASSIUM SERUM 3.5 MMOL/L (3.5-5.1)
[2024-06-05 08:24] VITALS: BP 114/77
[2024-06-05] MEDS ORDERED: TOUJ300I2 INJ (10:26)
[2024-06-05] MEDS ORDERED: METF-838 PO (10:26)
[2024-06-05] MEDS ORDERED: MUCI600T31 PO (10:27)
[2024-06-05 12:00] VITALS: BP 112/75; TEMP 96.8; O2SAT 91
== END 2024-06-05 13:05 | disposition home health service (06) ==
LOC: EDBD 13:42 → M ED 13:42 → M ED INP 13:43 → M MSPAV 06-04 17:58
PROVIDERS: ADMIT Internal Medicine; ATTEND Internal Medicine
DX: U07.1 COVID-19 (principal); E87.20 Acidosis, unspecified; R53.1 Weakness; E83.42 Hypomagnesemia; R00.0 Tachycardia, unspecified; R65.10 Systemic inflammatory response syndrome (SIRS) of non-infectious origin without acute organ dysfunction; I10 Essential (primary) hypertension; E11.9 Type 2 diabetes mellitus without complications; J45.909 Unspecified asthma, uncomplicated; F03.A0 Unspecified dementia, mild, without behavioral disturbance, psychotic disturbance, mood disturbance, and anxiety; R29.6 Repeated falls; Z20.822 Contact with and (suspected) exposure to COVID-19; Z86.16 Personal history of COVID-19; Z88.2 Allergy status to sulfonamides; Z88.1 Allergy status to other antibiotic agents; Z88.3 Allergy status to other anti-infective agents; Z79.899 Other long term (current) drug therapy; Z79.82 Long term (current) use of aspirin; Z79.84 Long term (current) use of oral hypoglycemic drugs
CPT/HCPCS: 36415; 51701; 70450; 71046; 80048; 80076; 81001; 82550; 82553; 83605; 83735; 84145; 84439; 84443; 84484; 85025; 85027; 85610; 85730; 87040; 87486; 87581; 87633; 87798; 93005; 93041; 94760; 96365; 96372; 96375; 96376; 97116; 97161; 99285; J0248; J1650; J1815; J1956; J3475

== ENCOUNTER → 2024-10-12 | Outpatient (CLI) | payer MEDICARE ==
[~2024-10-12] MED LIST changes: +MUCI600T31 PO; -RA T500C2 PO; +SEMA1PEN2 SQ; +TOUJ300I2 INJ; +TURM500C10 PO
[2024-10-12 13:18] LABS: BASO # 0.1 10^3/uL (0.0-0.2); BASO % 0.6 % (0.0-1.0); EOS # 0.2 10^3/uL (0.0-0.5); EOS % 2.1 % (0.0-3.0); LYMPH # 2.7 10^3/uL (1.5-5.0); LYMPH % 32.5 % (24.0-44.0); MONO # 1.0 10^3/uL (0.0-0.8); MONO % 12.5 % (2.0-8.0); NEUTROPHILS # 4.3 10^3/uL (1.5-8.5); NEUTROPHILS % 51.8 % (36.0-66.0); PLATELET COUNT, AUTOMATED 383 10^3/uL (150-450)
[2024-10-12 13:24] LABS: CALCIUM LEVEL 9.5 MG/DL (8.3-10.6); CARBON DIOXIDE LEVEL 27.0 MMOL/L (20-31); CHLORIDE LEVEL 104.0 MMOL/L (98-107); CREATININE FOR GFR 0.65 MG/DL (0.55-1.30); GLOMERULAR FILTRATION RATE 89.5 (>39); POTASSIUM SERUM 3.8 MMOL/L (3.5-5.1); SODIUM LEVEL 143.0 MMOL/L (136-145)
[2024-10-12 13:49] LABS: ESTIMATED AVERAGE GLUCOSE 143.0 MG/DL (60-110)
== END ==
LOC: M WUC 08:51
PROVIDERS: ATTEND Nurse Practitioner Adult Health
DX: E11.65 Type 2 diabetes mellitus with hyperglycemia (principal)